=== PATIENT | male | born 1955 | race Caucasian/White ===

== ENCOUNTER 2017-09-15 14:32 | Inpatient (IN) | payer SELFPAY ==
[2017-09-15 15:03] LABS: #Lymphocytes 0.7 thou/uL (1.20-3.40); #Neutrophils 11.8 thou/uL (1.40-6.50); %Basophils 0.3 % (0.0-1.0); %Eosinophils 0.1 % (0.0-10.0); %Monocytes 7.6 % (0.0-10.0); Hematocrit 46.3 % (42.0-52.0); Mean Platelet Volume 8.3 fL (7.4-10.4); Red Blood Cell (RBC) Count 5.26 mill/uL (4.70-6.10); White Blood Cell (WBC) Count 13.6 thou/uL (4.8-10.8)
[2017-09-15 15:13] LABS: Oxyhemoglobin 87.5 % (94.0-97.0); Sodium 132 mmol/L (135-148)
[2017-09-15 15:15] LABS: Modified Allen's Test POSITIVE; Vent YES
[2017-09-15 15:16] LABS: Mode NIPPV; PIP 10 cmH2O
[2017-09-15 15:24] LABS: Lactic Acid - Sepsis 1.2 mmol/L (0.5-2.2)
[2017-09-15 15:28] LABS: ALT (SGPT) 19 U/L (8-55); AST (SGOT) 24 U/L (5-34); Alkaline Phosphatase 59 U/L (40-150); Anion Gap 12 mmol/L (10-20); BUN (Urea Nitrogen) 17 mg/dL (8.4-25.7); Bilirubin, Total 0.7 mg/dL (0.2-1.2); CK (CPK) 308 U/L (30-200); Calc. Creatinine Clearance 0 mL/min (70-130); Calcium 9.2 mg/dL (7.8-10.44); Carbon Dioxide 29 mmol/L (23-31); Chloride 94 mmol/L (98-107); Estimated GFR-MDRD Greater than 90; Globulin 3.9 g/dL (2.4-3.5); Lipase 11 U/L (8-78); Protein, Total 7.6 g/dL (5.8-8.1)
[2017-09-15 16:02] LABS: Bilirubin Negative (Negative); Blood, Urine Small (Negative); Glucose, Urine (Dipstick) Negative (Negative); Ketone, Urine Negative (Negative); Nitrite Negative (Negative); Protein, Urine (Dipstick) 300 mg/dL (Neg-Trace)
[2017-09-15 16:03] LABS: Oxyhemoglobin 85.5 % (94.0-97.0); Sodium 132 mmol/L (135-148)
[2017-09-15 16:04] LABS: Bacteria/HPF None Seen HPF (None Seen); Hyaline Casts/LPF 4-6 HYALINE CAST LPF (0-3 Hyaline); Squamous Epithelial 0-3 HPF (0-3); WBC/HPF 0-3 HPF (0-3)
[2017-09-15 16:04] LABS: Mechanical Tidal Volume 450 ml; Mode AVAPS; Modified Allen's Test POSITIVE; PIP 14 cmH2O; Vent YES
[2017-09-15] MEDS ORDERED: Fentanyl 20 MCG/ML 250 ML ONE (16:18)
[2017-09-15] MEDS ORDERED: Piperacillin/Tazobactam 3.375 GM in Sodium Chloride 0.9% 100 ML IVPB SCH ×2 (16:45→18:00)
[2017-09-15 17:12] LABS: Oxyhemoglobin 90.6 % (94.0-97.0); Sodium 131 mmol/L (135-148)
--- NOTE | 2017-09-15 17:12 | RAD ---
PORTABLE AP CHEST X-RAY 09/15/17 HISTORY: Dyspnea, sepsis. COMPARISON: None available. FINDINGS: The cardiac silhouette is magnified by projection and patient rotation. Pulmonary vasculature is with in normal limits. The left lung is clear. There is slight blunting of the right lateral costophrenic angle with parenchymal changes of the right lung base which may represent tiny right pleural effusion and atelectasis. However, followup PA and lateral chest x-ray is recommended. Thoracic aorta is ecta tic. There is prominence of the right paratracheal soft tissues, but this is probably related to lavon ent rotation and accentuation of the mediastinal structures. Osseous structures are intact. IMPRESSION: Findings likely related to tiny right pleural effusion and atelectasis. However, patient is rotated w hich may accentuate the markings at the right lung base. Followup PA and lateral chest x-ray is sugge kyled. POS: [facility]
[2017-09-15 17:13] LABS: Mechanical Tidal Volume 400 ml; Mode SIMV.PSV; Modified Allen's Test POSITIVE; Pressure Support 10 cmH2O; Vent YES
[2017-09-15] MEDS ORDERED: Acetaminophen 1,000 MG in Premix Bag 1 BAG IVPB SCH (17:15)
[2017-09-15] MEDS ORDERED: ISOVUE-370 76%-LOCM 1 ML ONE (17:18)
[2017-09-15] MEDS ORDERED: Norepinephrine 8 MG/0.9% NS 250 ML ONE (17:42)
[2017-09-15 17:49] LABS: Troponin I 0.064 ng/mL (< 0.028)
--- NOTE | 2017-09-15 18:04 | RAD ---
CHEST ONE VIEW 09/15/17 HISTORY: Central line placement. COMPARISON: Earlier exam on the same date. FINDINGS/IMPRESSION: Tip of a right subclavian central venous catheter projects over the right atrium. There is no evidenc e of pneumothorax. Other findings are stable. POS: [facility]
[2017-09-15] MEDS ORDERED: Dexamethasone 10 MG/ML VIAL ONE (18:31)
--- NOTE | 2017-09-15 18:38 | RAD ---
CHEST ONE VIEW 09/15/17 HISTORY: Intubation. COMPARISON: 09/15/17. FINDINGS: The cardiac silhouette is magnified by projection and partially obscured by patchy bibasilar infiltra sharon. Pulmonary vasculature is engorged. Mediastinum is midline. Tip of an endotracheal catheter overl ies the thoracic inlet. Nasogastric tube descends to the abdomen. IMPRESSION: 1. Endotracheal catheter and nasogastric tube are in good radiographic position. 2. Pulmonary vascular congestion and other findings are otherwise stable. POS: [facility]
[2017-09-15] MEDS ORDERED: Midazolam HCl 5 mg/ml Vial ONE (18:58)
[2017-09-15] MEDS ORDERED: Propofol 1,000 MG/100 ML VIAL IV ONE (20:00)
[2017-09-15] MEDS ORDERED: Norepinephrine 8 MG/250 ML BAG IVPB PRN (20:50)
[2017-09-15] MEDS ORDERED: Sodium Chloride 0.45% 1,000 ML IV SCH (21:00)
[2017-09-15] MEDS ORDERED: Sedation Protocol FS ONE (21:24)
[2017-09-15] MEDS ORDERED: Vancomycin HCl 1 GM in Sodium Chloride 0.9% 250 ML 250 ML IVPB SCH (21:24)
[2017-09-15] MEDS ORDERED: Sodium Chloride 0.9% 1,000 ML IV SCH (21:24)
--- NOTE | 2017-09-15 21:27 | CT ---
CT ARTERIOGRAM CHEST WITH IV CONTRAST AND 3D MIP IMAGING 09/15/17 HISTORY: Chest pain. Dyspnea. Fever. FINDINGS: There is good contrast opacification of the pulmonary arteries and partial opacification of the thora cic aorta with normal branching of the great vessels. Minimal arterial calcifications apparent. Endot keyana catheter and nasogastric tube are in place. There is extensive atelectasis at the right posterior lung base with mild left posterior basilar atel ectasis. No significant pleural effusions are apparent. There is resultant elevation of the right hem idiaphragm. IMPRESSION: 1. No CT evidence of pulmonary embolus. 2. Bibasilar atelectasis, right greater than left. Cause is not apparent. POS: [facility]
[2017-09-15] MEDS ORDERED: DISCONTINUE PREVIOUS NARCOTIC PAIN MEDICATIONS AND BENZODIAZEPINES FS SCH (21:31)
[2017-09-15] MEDS ORDERED: Morphine 4 MG/ML VIAL SLOW IVP PRN (21:32)
[2017-09-15 21:45] LABS: LegU Control Bar Appear? YES (CONTROL BAR); LegionellaU Control Bkground? CLEAR/WHITE (CLR/WHITE); Strp pneuU Control Background? CLEAR/WHITE (CLR/WHITE); Strp pneumo Control Bar Appear YES (CONTROL BAR)
[2017-09-15] MEDS ORDERED: Famotidine/PF 20 mg/2ml Vial SLOW IVP SCH (21:45)
[2017-09-15] MEDS ORDERED: ZOSYN IVPB PRN (21:56)
[2017-09-15] MEDS ORDERED: methylPREDNISolone Sod Succ/PF 125 MG/2 ML VIAL IVP SCH (22:00)
[2017-09-15] MEDS ORDERED: Potassium Phosphate 9 MMOL in Sodium Chloride 0.9% 100 ML IVPB PRN (22:14)
[2017-09-15] MEDS ORDERED: Potassium Chloride 20 MEQ TAB PO PRN (22:14)
[2017-09-15] MEDS ORDERED: Potassium Phosphate 15 MMOL in Sodium Chloride 0.9% 250 ML 250 ML IV PRN (22:14)
[2017-09-15] MEDS ORDERED: Magnesium Oxide 400 MG TAB PO PRN ×2 (22:14)
[2017-09-15] MEDS ORDERED: CCU ELECTROLYTE REPLACEMENT PROTOCOL FS PRN (22:14)
[2017-09-15] MEDS ORDERED: Potassium Chloride 40 MEQ in Premix Bag 1 BAG IVPB PRN (22:14)
[2017-09-15] MEDS ORDERED: Magnesium 2 GM/NS 0.9% 100 ML 2 GM in Premix Bag 1 BAG IVPB PRN (22:14)
[2017-09-15] MEDS ORDERED: Potassium Chloride 40 MEQ in Sodium Chloride 0.9% 250 ML 250 ML IVPB PRN (22:14)
[2017-09-15] MEDS ORDERED: Potassium Phosphate 12 MMOL in Sodium Chloride 0.9% 250 ML 250 ML IV PRN (22:14)
[2017-09-15] MEDS ORDERED: CCU Electrolyte Replacement 1 EACH FS SCH (22:15)
[2017-09-15 22:35] LABS: Lactic Acid - Sepsis 1.4 mmol/L (0.5-2.2)
[2017-09-15] MEDS: Oseltamivir 6 MG/ML ORAL SUSP PER TUBE SCH (23:02)
[2017-09-15] MEDS: Sodium Chloride 0.9% 1,000 ML IV SCH (23:02)
[2017-09-15 23:15] LABS: Troponin I 0.059 ng/mL (< 0.028)
[2017-09-15] MEDS: Norepinephrine 8 MG/0.9% NS 250 ML IVPB PRN (23:28)
[2017-09-15] MEDS: methylPREDNISolone Sod Succ/PF 125 MG/2 ML VIAL IVP SCH (23:30)
[2017-09-15] MEDS: Piperacillin/Tazobactam 4.5 GM in Sodium Chloride 0.9% 100 ML IVPB SCH (23:38)
--- NOTE | 2017-09-16 00:20 | OP ---
DATE OF SERVICE: 09/15/2017 PROCEDURE: Left femoral arterial line placement. PREOPERATIVE DIAGNOSIS: Hypotension with sepsis. POSTOPERATIVE DIAGNOSIS: Hypotension with sepsis. ANESTHESIA: None. DESCRIPTION OF PROCEDURE: This procedure was done on an emergent basis and there was no family here to provide consent for procedure. The left groin was scrubbed with chlorhexidine and draped sterilely. Using sterile technique, the le ft femoral artery was cannulated. An arterial line was placed via the modified Seldinger technique w ithout difficulty. The line flushed arterial blood.
--- NOTE | 2017-09-16 02:50 | CON ---
DATE OF CONSULTATION: 09/15/2017 Forty-five minutes of critical care time. REASON FOR CONSULTATION: Acute respiratory failure related to pneumonitis. HISTORY OF PRESENT ILLNESS: This is a 61-year-old male with little medical history other than hypert ension. He came in today with shortness of breath. He had been cleaning out a garage that apparentl y had either animals or fecal material. He has tested flu A positive, he rapidly deteriorated i n the emergency room, failing BiPAP and necessitated endotracheal intubation. PAST MEDICAL HISTORY: Hypertension. PAST SURGICAL HISTORY: None. ALLERGIES: None known. OUTPATIENT MEDICATIONS: None known. SOCIAL HISTORY: Employment history, none known. Former smoker. REVIEW OF SYSTEMS: Cannot be obtained secondary to him being intubated. PHYSICAL EXAMINATION: VITAL SIGNS: Temperature 102.8 on arrival. Initial blood pressure 126/112, now requiring Levophed f or hypertension. Pulse 131, respirations 24 on mechanical ventilation. GENERAL: He is a disheveled appearing male who is intubated and sedated. HEENT: Pupils are 2 mm and reactive. Sclerae are anicteric. Oropharnynx clear. NECK: No adenopathy or JVD. LUNGS: He has coarse crackles bilaterally with diminished breath sounds at the bases. CARDIAC: S1, S2, tachycardic without murmur. ABDOMEN: Obese, soft. No hepatosplenomegaly, no obvious masses. EXTREMITIES: No obvious skin lesions. No cyanosis or edema. LABORATORY AND DIAGNOSTIC DATA: White blood cell count 13.6, hemoglobin 14.6, hematocrit 46.3, plate let count 224 with 87% neutrophils. PH 7.26, pCO2 of 60, pO2 of 71 that was on SIMV rate 15, tidal v olume 400, PEEP 8, pressure support 10, FiO2 50%. Sodium 131, potassium 4.3, chloride 94, CO2 of 29, BUN 17, creatinine 0.8, glucose 139. Troponin 0.10. CPK 308. His chest x-ray shows diffuse bilate ral infiltrates. He has bilateral pleural effusions which are small. The endotracheal tube is locat ed about 4 cm above his enrike. He has a central line coursing to his right subclavian vein resting in the superior vena cava. ASSESSMENT: 1. Acute respiratory failure related to pneumonia. 2. Influenza type A. 3. Possible septic shock. 4. Hyponatremia. PLAN: 1. The patient is being placed in the CCU. He has been put on broad spectrum IV antibiotics include Levaquin, Zosyn, and vancomycin. 2. Vasopressor support as needed. 3. Fluid resuscitation. 4. IV steroids, thiamine, and vitamin C. 5. Consider prone position ventilation if his oxygenation continues to worse. 6. Await CT of the chest. 7. Possible arterial line placement.
--- NOTE | 2017-09-16 03:07 | HP-2 ---
CODE STATUS: FULL. PRIMARY CARE PHYSICIAN: [facility]. ATTENDING PHYSICIAN: Dr. Croft. PGY-1: Dr. Ni. CHIEF COMPLAINT: Shortness of breath. HISTORY OF PRESENT ILLNESS: This is a 61-year-old male that is intubated at the time of this interview. This patient's history is from the ED staff. According to the ED staff. The patient presented with shortness of breath, fever, wheezing and mild congestion for approximately 1 week. Apparently cleaning the house that was in bad shape and had multiple cats on scene of a relative. The patient had not taken care of himself recently as he was caring for a relative getting arrangements made. The patient denied vomiting or diarrhea. The patient also denied any lung disease or any PCP care. Further history taking will be done when the family is made available or when the patient's condition improves. In the ER, he was given DuoNebs, Levaquin, vancomycin and Zosyn. PAST MEDICAL HISTORY: Significant for hypertension. PAST SURGICAL HISTORY: Unknown. ALLERGIES: No known drug allergies. MEDICATIONS: Unknown. FAMILY HISTORY: Noncontributory. SOCIAL HISTORY: He is a former smoker, not sure of packs per day or on pack years. He denies any alcohol or drug use. REVIEW OF SYSTEMS: Unobtainable at this time other than listed in the HPI. PHYSICAL EXAMINATION: VITAL SIGNS: Blood pressure was 102/65, pulse was 116, respirations 15, temperature max is 102.4, pulse ox 90% on the ventilator. Currently, weighs 138 kilos. GENERAL: He was sedated and intubated. EYES: PERRLA. ENT: Nasal mucosa and oropharynx within normal limits. Endotracheal tube was in place. CARDIOVASCULAR: He had a tachy rhythm with distant heart sounds. RESPIRATORY: Had coarse lung sounds. SKIN: Warm and dry. ABDOMEN: Soft and nontender to palpation. Bowel sounds are present x4. No mass or distention. EXTREMITIES: No clubbing, cyanosis or edema. PSYCHIATRIC: He was sedated. LABORATORY AND IMAGING DATA: White blood cell count 13.6, platelet count 224, hemoglobin 14.6, hematocrit 46.3, MCV 87.9% and neutrophils 87.0. Sodium was 131, potassium 4.3, chloride 94, bicarbonate 29, BUN 17, creatinine 0.85, glucose 139, calcium 9.2, total protein 7.6, albumin 3.7, total bilirubin 0.7, AST 24, ALT 19 and alkaline phosphatase 5.59. Lactate was 1.4. Influenza H1 and A were positive. He had a CK level of 308, CK-MB of 2.6, troponin I of 0.064 and lipase of 11. His urinalysis showed a small amount of blood, protein 300, rbc's 4-6, white blood cells 0-3. His ABG showed a pH of 7.26, CO2 of 68.4 and pO2 of 71.2. His EKG showed sinus tachycardia with PVCs. Chest x-ray showed a tiny right pleural effusion with atelectasis. ASSESSMENT AND PLAN: A 61-year-old male presents with: 1. Septic shock. Continue his antibiotics and give him vasopressors. He will remain intubated on the ventilator. Consulted Dr. Currie with Pulmonology. We appreciate his help on this case. 2. Hypoxic hypercapnic respiratory failure. Consulted Dr. Currie with Pulmonology. We appreciate his recommendations. He will continue on the vent and DuoNebs. 3. Elevated troponins. We are going to trend those, give him an aspirin and get a fasting lipid panel, TSH, mag, phos, statin, Lovenox and then consider an echo and EKG in the morning. 4. Hyponatremia. Legionella rule out. Get urine sodium, osmolality. 5. Leukocytosis secondary to #1. We will trend a CBC. 6. Influenza H1 and A. We will give him Tamiflu through his tube. Disposition and length of hospital stay to the ICU and 2 midnights. Symptomatic medications will be provided. History and physical exam as well as management has been discussed with Dr. Croft. [facility]
[2017-09-16 04:37] LABS: #Lymphocytes 0.6 thou/uL (1.20-3.40); #Monocytes 0.7 thou/uL (0.11-0.59); #Neutrophils 14.7 thou/uL (1.40-6.50); %Basophils 0.1 % (0.0-1.0); %Lymphocytes 3.4 % (21.0-51.0); %Monocytes 4.6 % (0.0-10.0); Hematocrit 39.9 % (42.0-52.0); Mean Platelet Volume 8.5 fL (7.4-10.4); Red Blood Cell (RBC) Count 4.52 mill/uL (4.70-6.10)
[2017-09-16] MEDS: Propofol 1,000 MG/100 ML VIAL IV PRN ×3 (04:57→18:15)
[2017-09-16] MEDS: Piperacillin/Tazobactam 4.5 GM in Sodium Chloride 0.9% 100 ML IVPB SCH ×4 (05:00→23:52)
[2017-09-16 05:01] LABS: ALT (SGPT) 19 U/L (8-55); AST (SGOT) 21 U/L (5-34); Alkaline Phosphatase 47 U/L (40-150); Anion Gap 11 mmol/L (10-20); BUN (Urea Nitrogen) 23 mg/dL (8.4-25.7); Bilirubin, Total 0.6 mg/dL (0.2-1.2); Calc. Creatinine Clearance 121 mL/min (70-130); Calcium 8.1 mg/dL (7.8-10.44); Carbon Dioxide 25 mmol/L (23-31); Chloride 100 mmol/L (98-107); Cholesterol 131 mg/dl (< 200 Desired); Estimated GFR-MDRD 64; Globulin 3.2 g/dL (2.4-3.5); LDL Cholesterol, Calculated 84 mg/dL; Protein, Total 6.2 g/dL (5.8-8.1)
[2017-09-16] MEDS: methylPREDNISolone Sod Succ/PF 125 MG/2 ML VIAL IVP SCH ×4 (05:08→23:15)
[2017-09-16] MEDS: Sodium Chloride 0.9% 1,000 ML IV SCH ×3 (05:09→20:25)
[2017-09-16 06:55] LABS: Oxyhemoglobin 95.1 % (94.0-97.0); Sodium 136 mmol/L (135-148)
[2017-09-16 06:57] LABS: Mechanical Tidal Volume 400 ml; Pressure Support 10 cmH2O; Vent YES
[2017-09-16 06:58] LABS: Mode SIMV
[2017-09-16] MEDS: Lorazepam 2 MG/ML VIAL SLOW IVP PRN ×4 (07:28→23:15)
[2017-09-16] MEDS ORDERED: Metoclopramide HCl 10 MG/2 ML VIAL IVP PRN (07:37)
[2017-09-16] MEDS ORDERED: Dextrose 5% in Water 1,000 ML IV PRN (07:37)
[2017-09-16] MEDS ORDERED: Dextrose 50% Abboject 50 ML SYRINGE SLOW IVP PRN (07:37)
--- NOTE | 2017-09-16 07:59 | PRG ---
DATE OF SERVICE: 09/16/2017 SUBJECTIVE: Mr. Puente remains intubated on mechanical ventilation. According to his nighttime nurse, he will wake up and follow some commands. He is currently requiring Levophed at 10 mcg per minute. PHYSICAL EXAMINATION: VITAL SIGNS: On exam, his temperature is 98.5 with a T-max of 102 yesterday, heart rate 85, blood pr essure 116/68 via arterial line. Intake 2496, output 715. HEENT: Pupils react. Sclerae anicteric. Oropharynx is clear. NECK: No JVD. LUNGS: He has diminished breath sounds at the bases and generalized crackles throughout. CARDIOVASCULAR: S1, S2 regular. ABDOMEN: Soft, obese, nontender, nondistended. EXTREMITIES: No clubbing, cyanosis, or edema. He has arterial line in the left groin, he has a righ t subclavian line. X-RAY FINDINGS: His chest x-ray demonstrates endotracheal tube that rest about 5 cm above the enrike . He has a subclavian central line, which is resting in the superior vena cava. He has an infiltrat e in the right base. LABORATORY DATA: White blood cell count 16, hematocrit 39.9, platelet count 224, pH is 7.38, pCO2 40 , pO2 76 on SIMV rate 24, tidal volume 400, PEEP 14, pressure support 10, FIO2 60%. Sodium 132, pota ssium 3.9, chloride 100, CO2 25, BUN 23, creatinine 1.2, glucose 220, troponin 0.059. Cultures have no growth to date. ASSESSMENT: 1. Bilateral pneumonia. 2. Acute respiratory failure requiring mechanical ventilation. 3. Type A flu. 4. Mild hyponatremia. 5. Beginning renal insufficiency. 6. Slightly elevated troponin. 7. Hyperglycemia, which may be aggravated by the steroids. PLAN: 1. Continue the broad spectrum IV antibiotics, Tamiflu, and vasopressors. 2. Wean Levophed as tolerated. 3. Initiate enteral tube feeds. 4. Cut back on IV fluids.
--- NOTE | 2017-09-16 08:46 | RAD ---
PORTABLE CHEST: HISTORY: Dyspnea. CCU followup. COMPARISON: 09/15/17. FINDINGS: Right basilar opacification consistent with right basilar atelectasis and/or infiltrate with effusion . Mild left basilar atelectasis is also present. ET tube and central line unchanged. Upper lung fi elds remain clear. IMPRESSION: Bibasilar atelectasis and/or infiltrates, more prominent on the right. POS: [facility]
[2017-09-16] MEDS ORDERED: FLU VACC QS2017-18 36 mo. & older 0.5 ML SYRINGE IM ONE (09:00)
[2017-09-16] MEDS: Aspirin 325 MG TAB PER TUBE SCH (09:42)
[2017-09-16] MEDS: Enoxaparin Sodium 40 MG/0.4 ML SYRINGE SC SCH (09:42)
[2017-09-16] MEDS: Famotidine/PF 20 mg/2ml Vial SLOW IVP SCH ×2 (09:42→20:25)
[2017-09-16 10:20] LABS: Mechanical Tidal Volume 400 ml; Oxyhemoglobin 95.1 % (94.0-97.0); Pressure Support 10 cmH2O; Sodium 136 mmol/L (135-148); Vent YES
[2017-09-16 10:21] LABS: Mode SIMV
--- NOTE | 2017-09-16 10:36 | PDOC.FM ---
- Subjective Subjective: Patient awake and able to follow commands during evaluation. Aggitated and trying to talk over endotrachial tube. - Objective MAR Reviewed: Yes Vital Signs & Weight: Vital Signs (12 hours) Temp Pulse Resp Pulse Ox 09/16/17 10:05 75 09/16/17 08:00 98.4 F 74 24 H 99 09/16/17 06:41 61 09/16/17 04:00 98.5 F 24 H 09/16/17 02:23 65 24 H 96 09/16/17 02:00 24 H 09/16/17 00:00 98.2 F 24 H Weight Weight 135.2 kg Most Recent Monitor Data Heart Rate from ECG 66 NIBP 123/77 NIBP BP-Mean 90 Respiration from ECG 16 SpO2 100 I&O: 09/15/17 09/16/17 09/17/17 06:59 06:59 06:59 Intake Total 2496 Output Total 715 135 Balance 1781 -135 Result Diagrams: 09/16/17 03:39 09/16/17 03:39 <Kamron Shukla - Last Filed: 09/16/17 10:34> - Objective Vital Signs & Weight: Vital Signs (12 hours) Temp Pulse Resp Pulse Ox 09/16/17 10:05 75 09/16/17 08:00 98.4 F 74 24 H 99 09/16/17 06:41 61 09/16/17 04:00 98.5 F 24 H 09/16/17 02:23 65 24 H 96 09/16/17 02:00 24 H Weight Weight 135.2 kg Most Recent Monitor Data Heart Rate from ECG 65 NIBP 146/79 NIBP BP-Mean 105 Respiration from ECG 8 SpO2 95 I&O: 09/15/17 09/16/17 09/17/17 06:59 06:59 06:59 Intake Total 2496 Output Total 715 195 Balance 1781 -195 Result Diagrams: 09/16/17 03:39 09/16/17 03:39 <Chad Rojas - Last Filed: 09/16/17 12:23> Phys Exam - Physical Examination Constitutional: NAD EOMI Respiratory: no wheezing, clear to auscultation bilateral decreased breath sounds on right Cardiovascular: RRR, no significant murmur Gastrointestinal: soft, no distention Musculoskeletal: no edema, pulses present Neurological: moves all 4 limbs Deviation from normal: limited 2/2 intubation <Kamron Shukla - Last Filed: 09/16/17 10:34> Dx/Plan (1) Septic shock Code(s): A41.9 - SEPSIS, UNSPECIFIED ORGANISM; R65.21 - SEVERE SEPSIS WITH SEPTIC SHOCK Status: Acute Plan: CAP vs Influenza A vs zoonotic disease Currently on levophed 10, trying to wean down as BP tolerates continue with vanc, zosyn, levaquin, tamiflu Bld Cx sent (2) Acute respiratory failure with hypoxia and hypercarbia Code(s): J96.01 - ACUTE RESPIRATORY FAILURE WITH HYPOXIA; J96.02 - ACUTE RESPIRATORY FAILURE WITH HYPERCAPNIA Status: Acute Plan: Continue with endotrachial entubation until patient is able to support breaths SIMV 24, tidal volume 400, PEEP 14 at this time with FiO2 at 60. ABG this mornin.38/40/76 enteral tube feeds (3) Hyponatremia Code(s): E87.1 - HYPO-OSMOLALITY AND HYPONATREMIA Status: Acute (4) Leukocytosis Code(s): D72.829 - ELEVATED WHITE BLOOD CELL COUNT, UNSPECIFIED Status: Acute (5) Pneumonia and influenza Status: Acute Plan: pleural effusion R>L bld cx pending vanc, zosyn, levaquin <Kamron Shukla - Last Filed: 09/16/17 10:34> Attending Addendum - Attending Addendum I personally evaluated the patient and discussed the management with Dr. Shukla. I agree with and repeated the History, Examination, Assessment and Plan documented above with any addition or exceptions noted below. Still with septic shock, now responsive to levo. Continue current antimicrobials, send PCT. Consider alternative infectious causes in light of history, but suspect post viral in light of 1 week of reported cough/ congestion. Lung protective strategy. POCUS with hepatization bilaterally, no prominent effusion. Nebs PRN. Titrate vasopressors to goal map 65, continue steroids. DVT/gi ppx. Critical care time 45 minutes. <Chad Rojas - Last Filed: 09/16/17 12:23>
[2017-09-16] MEDS: Insulin Regular 300 UNITS/3 ML VIAL SC PRN (14:34)
[2017-09-16] MEDS: Fentanyl 20 MCG/ML 250 ML IVPB SCH (16:43)
[2017-09-16] MEDS: Oseltamivir 6 MG/ML ORAL SUSP PER TUBE SCH (21:03)
[2017-09-16] MEDS: Acetaminophen 325 MG TAB PO PRN (21:36)
[2017-09-16] MEDS: Norepinephrine 8 MG/0.9% NS 250 ML IVPB PRN (23:15)
[2017-09-17] MEDS: Insulin Regular 300 UNITS/3 ML VIAL SC PRN ×4 (01:06→23:01)
[2017-09-17] MEDS: Propofol 1,000 MG/100 ML VIAL IV PRN ×4 (02:18→20:26)
[2017-09-17 04:37] LABS: #Basophils 0.1 thou/uL (0.0-0.2); #Lymphocytes 0.4 thou/uL (1.20-3.40); #Monocytes 1.1 thou/uL (0.11-0.59); #Neutrophils 15.8 thou/uL (1.40-6.50); %Basophils 0.5 % (0.0-1.0); %Eosinophils 0.1 % (0.0-10.0); %Lymphocytes 2.1 % (21.0-51.0); %Monocytes 6.1 % (0.0-10.0); Hematocrit 37.2 % (42.0-52.0); Mean Platelet Volume 8.5 fL (7.4-10.4); White Blood Cell (WBC) Count 17.3 thou/uL (4.8-10.8)
[2017-09-17 04:58] LABS: ALT (SGPT) 19 U/L (8-55); AST (SGOT) 18 U/L (5-34); Alkaline Phosphatase 39 U/L (40-150); Anion Gap 10 mmol/L (10-20); BUN (Urea Nitrogen) 25 mg/dL (8.4-25.7); Bilirubin, Total 0.3 mg/dL (0.2-1.2); Calc. Creatinine Clearance 142 mL/min (70-130); Calcium 8.3 mg/dL (7.8-10.44); Carbon Dioxide 25 mmol/L (23-31); Chloride 104 mmol/L (98-107); Estimated GFR-MDRD 73; Protein, Total 5.7 g/dL (5.8-8.1)
[2017-09-17] MEDS: Piperacillin/Tazobactam 4.5 GM in Sodium Chloride 0.9% 100 ML IVPB SCH ×4 (05:03→23:06)
[2017-09-17] MEDS: methylPREDNISolone Sod Succ/PF 125 MG/2 ML VIAL IVP SCH ×4 (05:03→22:58)
[2017-09-17 07:05] LABS: Oxyhemoglobin 95.4 % (94.0-97.0); Sodium 136 mmol/L (135-148)
[2017-09-17 07:09] LABS: Mechanical Tidal Volume 400 ml; Mode SIMV.PSV; Modified Allen's Test NOT DONE; Pressure Support 10 cmH2O; Vent YES
--- NOTE | 2017-09-17 08:22 | PRG ---
DATE OF SERVICE: 09/17/2017 The patient remains intubated on mechanical ventilation. He will wake up and nod and shake his head. PHYSICAL EXAMINATION: VITAL SIGNS: On exam, his temperature is 99.0 with a T-max 101.5, pulse is in the 80s, blood pressur e 125/70. He is on Levophed at 5 mcg per minute. Total intake for the last 24 hours has been 3430, output 1365. Weight 298 pounds. HEENT: Unremarkable. NECK: No JVD. LUNGS: He has diminished breath sounds in the bases and crackles throughout both lungs. CARDIAC: S1, S2 regular. ABDOMEN: Soft, nontender, nondistended. He is tolerating his tube feeds. EXTREMITIES: Without clubbing, cyanosis, or edema. LABORATORY DATA: White blood cell count 17.3, hemoglobin 11.9, hematocrit 37.2, platelet count 233, pH 7.35, pCO2 45, pO2 of 82 on SIMV rate 24, tidal volume 400, PEEP 14, pressure support 10, FiO2 60% . Sodium 135, potassium 4.2, chloride 104, CO2 25, BUN 25, creatinine 1.0, glucose 180. Chest x-ray shows no change. ASSESSMENT: 1. Bilateral pneumonia. 2. Acute hypoxic respiratory failure requiring mechanical ventilation. 3. Influenza type A. 4. Hyponatremia, which is corrected. 5. Mild renal insufficiency. 6. Slightly elevated troponin. 7. Hyperglycemia, likely aggravated by steroids. PLAN: 1. Continue tube feeds. 2. Continue antibiotics and Tamiflu. 3. Wean vasopressor as tolerated. 4. Cut back on FiO2, but he is not weanable from the ventilator otherwise at this time. 5. Cut back on IV fluids. Prognosis is still very guarded.
--- NOTE | 2017-09-17 08:29 | PDOC.FM ---
- Subjective Subjective: No significant changes overnight. Patient able to follow commands when on sedation vacation. Denies any pain. Temp 101.5 overnight resolved with tylenol. Rull ROS unable to be completed 2/2 sedation/intubation. - Objective MAR Reviewed: Yes Vital Signs & Weight: Vital Signs (12 hours) Temp Pulse Resp BP Pulse Ox 09/17/17 08:00 24 H 09/17/17 07:20 99.0 F 73 24 H 93 L 09/17/17 07:00 99.0 F 09/17/17 06:46 71 106/60 09/17/17 06:44 72 24 H 92 L 09/17/17 04:00 99.4 F 24 H 09/17/17 02:50 73 114/63 95 09/17/17 02:00 24 H 09/17/17 00:00 100 F H 24 H 09/16/17 23:27 80 96 09/16/17 22:00 24 H Weight Admit Weight 135.171 kg Weight 135.5 kg Most Recent Monitor Data Heart Rate from ECG 75 NIBP 143/75 NIBP BP-Mean 94 Respiration from ECG 25 SpO2 98 I&O: 09/16/17 09/17/17 09/18/17 06:59 06:59 06:59 Intake Total 2496 3430.3 30 Output Total 715 1365 200 Balance 1781 2065.3 -170 Result Diagrams: 09/17/17 04:17 09/17/17 04:17 <Kamron Shukla - Last Filed: 09/17/17 10:47> - Objective Vital Signs & Weight: Vital Signs (12 hours) Temp Pulse Resp BP Pulse Ox 09/17/17 18:47 70 140/77 09/17/17 18:00 24 H 09/17/17 16:00 98.9 F 24 H 09/17/17 15:37 67 125/68 09/17/17 15:36 67 24 H 93 L 09/17/17 14:00 24 H 09/17/17 12:00 98.9 F 24 H 09/17/17 11:22 67 140/82 09/17/17 11:21 67 24 H 95 09/17/17 10:00 24 H 09/17/17 08:00 24 H Weight Admit Weight 135.171 kg Weight 135.5 kg Most Recent Monitor Data Heart Rate from ECG 77 NIBP 132/74 NIBP BP-Mean 88 Respiration from ECG 24 SpO2 96 I&O: 09/16/17 09/17/17 09/18/17 06:59 06:59 06:59 Intake Total 2496 3430.3 2161 Output Total 715 1365 1160 Balance 1781 2065.3 1001 Result Diagrams: 09/17/17 04:17 09/17/17 04:17 <Chad Rojas - Last Filed: 09/17/17 19:52> Phys Exam - Physical Examination Constitutional: NAD intubation tube in place Neck: no JVD Respiratory: no wheezing, clear to auscultation bilateral Cardiovascular: RRR, no significant murmur Gastrointestinal: soft, positive bowel sounds Musculoskeletal: no edema, pulses present follows commands when sedation is stopped <Kamron Shukla - Last Filed: 09/17/17 10:47> Dx/Plan (1) Septic shock Code(s): A41.9 - SEPSIS, UNSPECIFIED ORGANISM; R65.21 - SEVERE SEPSIS WITH SEPTIC SHOCK Status: Acute Plan: CAP vs Influenza A vs zoonotic disease Currently on levophed 5, trying to wean down as BP tolerates continue with vanc, zosyn, levaquin, tamiflu Bld Cx negative after 24hrs (2) Acute respiratory failure with hypoxia and hypercarbia Code(s): J96.01 - ACUTE RESPIRATORY FAILURE WITH HYPOXIA; J96.02 - ACUTE RESPIRATORY FAILURE WITH HYPERCAPNIA Status: Acute Plan: Continue with endotrachial intubation until patient is able to support breaths SIMV 24, tidal volume 400, PEEP 14 at this time with FiO2 at 60. Will try to wean FiO2 down to 55 today and evaluate tolerance ABG this mornin.38/40/76 enteral tube feeds at 65ml/hr (3) Hyponatremia Code(s): E87.1 - HYPO-OSMOLALITY AND HYPONATREMIA Status: Acute Plan: improved, now 135 (4) Leukocytosis Code(s): D72.829 - ELEVATED WHITE BLOOD CELL COUNT, UNSPECIFIED Status: Acute (5) Pneumonia and influenza Status: Acute Plan: chest xray unchanged from yesterday bld cx pending, no growth after 24hrs vanc, zosyn, levaquin - Plan Plan: continue with SIMV at this time as well as enteral feeds; will await full culture growth but likely non-bacterial <Kamron Shukla - Last Filed: 09/17/17 10:47> Attending Addendum - Attending Addendum I personally evaluated the patient and discussed the management with Dr. Shukla. I agree with and repeated the History, Examination, Assessment and Plan documented above with any addition or exceptions noted below. Septic shock with ARDS secondary to influenza and possible post-influenza bacterial pneumonia, improving. Daily sedation vacations Lung protective ventilation Wean NE as tolerated Hold IVF, tolerating enteral nutrition Trend hgb PCT reassuring for likely viral etiology or early response to antimicrobials. Repeat day 5-7 prior to d/c of antibiotics pending course. DVT/GI ppx 45 minutes of critical care time. <Chad Rojas - Last Filed: 09/17/17 19:52>
[2017-09-17] MEDS: Aspirin 325 MG TAB PER TUBE SCH (08:35)
[2017-09-17] MEDS: Sodium Chloride 0.9% 1,000 ML IV SCH ×2 (08:35→22:56)
[2017-09-17] MEDS: Famotidine/PF 20 mg/2ml Vial SLOW IVP SCH ×2 (08:35→21:28)
[2017-09-17] MEDS: Enoxaparin Sodium 40 MG/0.4 ML SYRINGE SC SCH (08:35)
--- NOTE | 2017-09-17 08:51 | RAD ---
PORTABLE CHEST: History: Dyspnea. CCU follow up. Comparison: 09-16-17 FINDINGS: Opacification of the right lung base remains obscuring the right hemidiaphragm. There is evidence of left basilar atelectasis and/or infiltrate. There is evidence of bilateral effusions. ET tube, NG tube, and central line is unchanged. IMPRESSION: No significant change in the chest from yesterday. POS: [facility]
[2017-09-17 10:28] LABS: Vancomycin, Trough 16.7 ug/mL
[2017-09-17] MEDS: Fentanyl 20 MCG/ML 250 ML IVPB SCH (17:20)
[2017-09-17] MEDS: Oseltamivir 6 MG/ML ORAL SUSP PER TUBE SCH (21:43)
[2017-09-18] MEDS: Propofol 1,000 MG/100 ML VIAL IV PRN ×6 (01:04→21:56)
[2017-09-18] MEDS: methylPREDNISolone Sod Succ/PF 125 MG/2 ML VIAL IVP SCH (05:11)
[2017-09-18] MEDS: Piperacillin/Tazobactam 4.5 GM in Sodium Chloride 0.9% 100 ML IVPB SCH ×4 (05:11→23:23)
[2017-09-18 05:35] LABS: ALT (SGPT) 16 U/L (8-55); AST (SGOT) 16 U/L (5-34); Alkaline Phosphatase 35 U/L (40-150); Anion Gap 10 mmol/L (10-20); BUN (Urea Nitrogen) 25 mg/dL (8.4-25.7); Bilirubin, Total 0.3 mg/dL (0.2-1.2); Calc. Creatinine Clearance 172 mL/min (70-130); Calcium 8.4 mg/dL (7.8-10.44); Carbon Dioxide 27 mmol/L (23-31); Chloride 107 mmol/L (98-107); Estimated GFR-MDRD 90; Protein, Total 5.5 g/dL (5.8-8.1)
[2017-09-18 06:49] LABS: Band 24 % (5-11); Hematocrit 35.4 % (42.0-52.0); Mean Platelet Volume 8.2 fL (7.4-10.4); Neutrophil 67 % (42-75); Red Blood Cell (RBC) Count 3.97 mill/uL (4.70-6.10); White Blood Cell (WBC) Count 13.7 thou/uL (4.8-10.8)
[2017-09-18 07:11] LABS: Oxyhemoglobin 95.7 % (94.0-97.0); Sodium 141 mmol/L (135-148)
[2017-09-18 07:12] LABS: Mechanical Tidal Volume 400 ml; Mode SIMV; Pressure Support 10 cmH2O; Vent YES
--- NOTE | 2017-09-18 08:13 | PDOC.FM ---
- Subjective Subjective: No significant changes overnight, patient was weaned down on levophed down to 1 but unable to tolerate cessation. Patient tolerated FiO2 at 50% well. During sedation vacation he wakes up and follows commands. - Objective MAR Reviewed: Yes Vital Signs & Weight: Vital Signs (12 hours) Temp Pulse Resp BP 09/18/17 06:41 67 98/57 L 09/18/17 06:00 24 H 09/18/17 04:00 97.8 F 24 H 09/18/17 02:04 65 116/69 09/18/17 00:00 98.5 F 24 H 09/17/17 22:00 24 H 09/17/17 21:43 77 133/75 Weight Admit Weight 135.171 kg Weight 136.6 kg Most Recent Monitor Data Heart Rate from ECG 81 NIBP 138/78 NIBP BP-Mean 98 Respiration from ECG 24 SpO2 94 I&O: 09/17/17 09/18/17 09/19/17 06:59 06:59 06:59 Intake Total 3430.3 4404 Output Total 1365 1920 100 Balance 2065.3 2484 -100 Result Diagrams: 09/18/17 04:41 09/18/17 04:41 <Kamron Shukla - Last Filed: 09/18/17 08:11> - Objective Vital Signs & Weight: Vital Signs (12 hours) Temp Pulse Resp BP Pulse Ox 09/18/17 10:00 20 09/18/17 08:00 97.6 F 71 20 93 L 09/18/17 06:41 67 98/57 L 09/18/17 06:00 24 H 09/18/17 04:00 97.8 F 24 H 09/18/17 02:04 65 116/69 09/18/17 00:00 98.5 F 24 H Weight Admit Weight 135.171 kg Weight 136.6 kg Most Recent Monitor Data Heart Rate from ECG 69 NIBP 107/63 NIBP BP-Mean 70 Respiration from ECG 20 SpO2 93 I&O: 09/17/17 09/18/17 09/19/17 06:59 06:59 06:59 Intake Total 3430.3 4404 150 Output Total 1365 1920 385 Balance 2065.3 2484 -235 Result Diagrams: 09/18/17 04:41 09/18/17 04:41 <Chad Rojas - Last Filed: 09/18/17 10:39> Phys Exam - Physical Examination Constitutional: NAD intubation with minimal secretions Respiratory: no wheezing, clear to auscultation bilateral Cardiovascular: RRR, no significant murmur Gastrointestinal: soft, positive bowel sounds Musculoskeletal: no edema, pulses present follows commands during sedation vacation Deviation from normal: sedated Skin: no rash Deviation from normal: no open wounds or lesions/pressure sores <Kamron Shukla - Last Filed: 09/18/17 08:11> Dx/Plan (1) Septic shock Code(s): A41.9 - SEPSIS, UNSPECIFIED ORGANISM; R65.21 - SEVERE SEPSIS WITH SEPTIC SHOCK Status: Acute Plan: CAP vs Influenza A vs zoonotic disease Currently on levophed 1, trying to wean down as BP tolerates continue with vanc, zosyn, levaquin, tamiflu Bld Cx negative after 48hrs (2) Acute respiratory failure with hypoxia and hypercarbia Code(s): J96.01 - ACUTE RESPIRATORY FAILURE WITH HYPOXIA; J96.02 - ACUTE RESPIRATORY FAILURE WITH HYPERCAPNIA Status: Acute Plan: Continue with endotrachial intubation until patient is able to support breaths SIMV 24, tidal volume 400, PEEP 14 at this time with FiO2 at 50. ABG this mornin.36/46/87 enteral tube feeds (3) Hyponatremia Code(s): E87.1 - HYPO-OSMOLALITY AND HYPONATREMIA Status: Acute Plan: improved, now 139 (4) Leukocytosis Code(s): D72.829 - ELEVATED WHITE BLOOD CELL COUNT, UNSPECIFIED Status: Acute (5) Pneumonia and influenza Status: Acute Plan: chest xray unchanged from yesterday bld cx pending, no growth after 48hrs vanc, zosyn, levaquin, tamiflu - Plan Plan: continue weaning down on levophed and vent as patient tolerates <Kamron Shukla - Last Filed: 09/18/17 08:11> Attending Addendum - Attending Addendum I personally evaluated the patient and discussed the management with Dr. Shukla. I agree with and repeated the History, Examination, Assessment and Plan documented above with any addition or exceptions noted below. Unable to complete ROS 2/2 intubation. Daily sedation vacations, switch from propofol if able. Lung protective ventilation, improving Tolerating feeds, hold IVF at receiving ~2L daily with others Continue antibiotics and antiviral DVT/GI ppx Critical care time 45 minutes <Chad Rojas - Last Filed: 09/18/17 10:39>
[2017-09-18] MEDS: Enoxaparin Sodium 40 MG/0.4 ML SYRINGE SC SCH (08:19)
[2017-09-18] MEDS: Famotidine/PF 20 mg/2ml Vial SLOW IVP SCH ×2 (08:19→20:45)
[2017-09-18] MEDS: Aspirin 325 MG TAB PER TUBE SCH (08:19)
[2017-09-18] MEDS ORDERED: Furosemide 20 MG/2 ML VIAL IVP SCH (08:30)
--- NOTE | 2017-09-18 08:41 | PRG ---
DATE OF SERVICE: 09/18/2017 Thirty minutes critical care time. The patient remains intubated on mechanical ventilation. He is sedated on propofol and fentanyl. He will wake up and follow commands. PHYSICAL EXAMINATION: VITAL SIGNS: His temperature is 97.8 with no fever overnight, pulse 81, blood pressure 130/78. He i s off the Levophed drip. Total intake for 24 hours 4404, output 1920. Weight 301 pounds. HEENT: Unremarkable. NECK: No JVD. LUNGS: Diminished breath sounds at the bases. CARDIOVASCULAR: S1, S2 regular, without murmur. ABDOMEN: Soft, obese, nontender, nondistended. EXTREMITIES: No clubbing, cyanosis. He has trace edema. His micro cultures show no growth to date. LABORATORY DATA: Sodium 139, potassium 4.5, chloride 107, CO2 of 27, BUN 25, creatinine 0.8, glucose 161. Albumin is 2.5, pH 7.36, pCO2 46, pO2 of 87 on SIMV rate 24, tidal volume 400, PEEP 14, pressu re support 10, FiO2 50%. White blood cell count 13.7, hematocrit 35.4, platelet count 261. ASSESSMENT: 1. Acute respiratory failure requiring mechanical ventilation. 2. Bilateral pneumonia. 3. Influenza type A. 4. Corrected hyponatremia. 5. Mild renal insufficiency which is resolved. 6. Hyperglycemia that is aggravated by steroids. PLAN: 1. I have weaned his respiratory rate and decreased his PEEP and adjusted his tidal volume. 2. Begin to gently diurese. 3. Discontinue arterial line. 4. Continue IV antibiotics. 5. Start sliding scale insulin.
--- NOTE | 2017-09-18 08:48 | RAD ---
PORTABLE CHEST: Comparison: 09-17-17 History: Respiratory distress. FINDINGS: Heart size is borderline. Endotracheal and NG tube and right sided subclavian line are all unchanged in position. Bibasilar lung changes are similar to the prior exam. IMPRESSION: Stable exam. POS: [facility]
[2017-09-18] MEDS: Insulin Regular 300 UNITS/3 ML VIAL SC PRN ×3 (10:10→22:11)
[2017-09-18] MEDS: Sodium Chloride 0.9% 1,000 ML IV SCH (20:35)
[2017-09-18] MEDS: Oseltamivir 6 MG/ML ORAL SUSP PER TUBE SCH (21:31)
[2017-09-19] MEDS: Propofol 1,000 MG/100 ML VIAL IV PRN ×7 (01:36→23:21)
[2017-09-19] MEDS: Lorazepam 2 MG/ML VIAL SLOW IVP PRN ×3 (01:47→16:18)
[2017-09-19 04:32] LABS: ALT (SGPT) 18 U/L (8-55); AST (SGOT) 16 U/L (5-34); Alkaline Phosphatase 34 U/L (40-150); Anion Gap 8 mmol/L (10-20); BUN (Urea Nitrogen) 33 mg/dL (8.4-25.7); Bilirubin, Total 0.3 mg/dL (0.2-1.2); Calc. Creatinine Clearance 183 mL/min (70-130); Calcium 8.4 mg/dL (7.8-10.44); Carbon Dioxide 28 mmol/L (23-31); Chloride 108 mmol/L (98-107); Estimated GFR-MDRD Greater than 90; Globulin 3.1 g/dL (2.4-3.5); Protein, Total 5.6 g/dL (5.8-8.1)
[2017-09-19 04:39] LABS: Anisocytosis SLIGHT = 6-15 cells (100X) (0-5/hpf); Band 9 % (5-11); Hematocrit 35.3 % (42.0-52.0); Mean Platelet Volume 8.3 fL (7.4-10.4); Metamyelocyte 2 % (0-0); Neutrophil 74 % (42-75); Red Blood Cell (RBC) Count 3.99 mill/uL (4.70-6.10); White Blood Cell (WBC) Count 13.2 thou/uL (4.8-10.8)
[2017-09-19] MEDS: Piperacillin/Tazobactam 4.5 GM in Sodium Chloride 0.9% 100 ML IVPB SCH ×4 (05:00→23:16)
[2017-09-19 06:58] LABS: Sodium 143 mmol/L (135-148)
[2017-09-19 07:05] LABS: Mechanical Tidal Volume 500 ml; Mode SIMV; Modified Allen's Test POSITIVE; Pressure Support 10 cmH2O; Vent YES
[2017-09-19] MEDS: Fentanyl 20 MCG/ML 250 ML IVPB SCH (07:37)
[2017-09-19] MEDS: Famotidine/PF 20 mg/2ml Vial SLOW IVP SCH (08:02)
[2017-09-19] MEDS: Enoxaparin Sodium 40 MG/0.4 ML SYRINGE SC SCH (08:02)
[2017-09-19] MEDS: Aspirin 325 MG TAB PER TUBE SCH (08:02)
--- NOTE | 2017-09-19 08:37 | PRG ---
DATE OF SERVICE: 09/19/2017 The patient remains on mechanical ventilation. He is sedated on propofol. PHYSICAL EXAMINATION: VITAL SIGNS: Temperature is 97.0, pulse 65, blood pressure 140/78. 24 hour intake is 3517, output 2 145. HEENT: Unremarkable. NECK: Without adenopathy, JVD, or bruits. LUNGS: Diminished breath sounds throughout. CARDIAC: S1 and S2 regular. ABDOMEN: Soft. EXTREMITIES: No edema. LABORATORY DATA: Sodium 140, potassium 4.3, chloride 108, CO2 20, BUN 33, creatinine 0.8, glucose 15 5, albumin 2.5. PH 7.43, pCO2 of 40, pO2 65. White blood cell count 13.2, hematocrit 35.3, platelet count 288. ASSESSMENT: 1. Acute respiratory failure secondary to pneumonia. 2. Influenza type A. 3. Mild prerenal azotemia. PLAN: 1. Switch to bilevel ventilation. 2. Scheduled Reglan given the increase tube feed residuals. 3. Continue broad spectrum IV antibiotics and steroids. 4. It looks like this will take quite a while before we start seeing improvement.
--- NOTE | 2017-09-19 09:08 | RAD ---
EXAM: ONE VIEW CHEST: COMPARISON: 09/18/17. HISTORY: Respiratory distress. Ventilated patient. FINDINGS: Stable endotracheal, nasogastric tubes, as well as a right-sided central venous catheter. Persistent opacification in the left and right lung bases which obscure both hemidiaphragms. Stable configurat ion of the cardiac silhouette. No pneumothorax. IMPRESSION: No significant interval change. POS: [facility]
[2017-09-19] MEDS: Metoclopramide HCl 10 MG/2 ML VIAL IVP SCH ×3 (09:55→20:08)
--- NOTE | 2017-09-19 10:50 | PDOC.FM ---
- Subjective Subjective: Patient overnight had an episode of agitation which resolved with ativan. Patient was passing gas this morning during shift change. Currently BP maintained off levophed. - Objective MAR Reviewed: Yes Vital Signs & Weight: Vital Signs (12 hours) Temp Pulse Resp BP Pulse Ox 09/19/17 08:29 64 154/73 H 09/19/17 08:00 97.3 F L 64 20 91 L 09/19/17 06:41 64 147/74 H 09/19/17 06:00 20 09/19/17 04:00 97.0 F L 20 09/19/17 02:24 67 139/75 09/19/17 02:23 67 20 93 L 09/19/17 02:00 20 09/19/17 00:00 97.1 F L 20 Weight Admit Weight 135.171 kg Weight 138.2 kg Most Recent Monitor Data Heart Rate from ECG 59 NIBP 175/90 NIBP BP-Mean 108 Respiration from ECG 20 SpO2 91 I&O: 09/18/17 09/19/17 09/20/17 06:59 06:59 06:59 Intake Total 4404 3517 150 Output Total 1920 2145 360 Balance 2484 1372 -210 Result Diagrams: 09/19/17 03:43 09/19/17 03:43 <Kamron Shukla - Last Filed: 09/19/17 10:48> - Objective Vital Signs & Weight: Vital Signs (12 hours) Temp Pulse Resp BP Pulse Ox 09/19/17 10:50 65 175/90 H 09/19/17 08:29 64 154/73 H 09/19/17 08:00 97.3 F L 64 20 91 L 09/19/17 06:41 64 147/74 H 09/19/17 06:00 20 09/19/17 04:00 97.0 F L 20 09/19/17 02:24 67 139/75 09/19/17 02:23 67 20 93 L 09/19/17 02:00 20 09/19/17 00:00 97.1 F L 20 Weight Admit Weight 135.171 kg Weight 138.2 kg Most Recent Monitor Data Heart Rate from ECG 59 NIBP 175/90 NIBP BP-Mean 108 Respiration from ECG 20 SpO2 91 I&O: 09/18/17 09/19/17 09/20/17 06:59 06:59 06:59 Intake Total 4404 3517 150 Output Total 1210 2145 360 Balance 2484 1372 -210 Result Diagrams: 09/19/17 03:43 09/19/17 03:43 <Chad Rojas - Last Filed: 09/19/17 11:08> Phys Exam - Physical Examination Constitutional: NAD HEENT: moist MMs Neck: no JVD Respiratory: no wheezing, clear to auscultation bilateral Cardiovascular: RRR, no significant murmur Gastrointestinal: soft midline hernia, stable from previous days Musculoskeletal: pulses present mild edema in hands and feet retracts from pain Deviation from normal: sedated Skin: no rash, normal turgor Deviation from normal: no lesions or breaks in skin <Kamron Shukla - Last Filed: 09/19/17 10:48> Dx/Plan (1) Septic shock Code(s): A41.9 - SEPSIS, UNSPECIFIED ORGANISM; R65.21 - SEVERE SEPSIS WITH SEPTIC SHOCK Status: Acute Plan: likely influenza pneumonia BP maintaining without levophed continue with vanc, zosyn, levaquin, tamiflu Bld Cx negative after 48hrs (2) Acute respiratory failure with hypoxia and hypercarbia Code(s): J96.01 - ACUTE RESPIRATORY FAILURE WITH HYPOXIA; J96.02 - ACUTE RESPIRATORY FAILURE WITH HYPERCAPNIA Status: Acute Plan: Continue with endotrachial intubation until patient is able to support breaths possibly consider trach next week if patient appears to continue to require intubation patient changed to bilevel today, , RR20, FiO2: 40% ABG this mornin.43/40/65 enteral tube feeds (3) Hyponatremia Code(s): E87.1 - HYPO-OSMOLALITY AND HYPONATREMIA Status: Resolved Plan: improved, now 139 (4) Leukocytosis Code(s): D72.829 - ELEVATED WHITE BLOOD CELL COUNT, UNSPECIFIED Status: Acute (5) Pneumonia and influenza Status: Acute Plan: chest xray unchanged from yesterday bld cx pending, no growth after 48hrs vanc, zosyn, levaquin, tamiflu <Kamron Shukla - Last Filed: 09/19/17 10:48> Attending Addendum - Attending Addendum I personally evaluated the patient and discussed the management with Dr. Shukla. I agree with and repeated the History, Examination, Assessment and Plan documented above with any addition or exceptions noted below. On bilevel, TV's 700's Elevated BUN, stable hgb, on steroids Begin weaning steroids Continue antimicrobials for 7-10 days total DVT/gi ppx <Chad Rojas - Last Filed: 09/19/17 11:08>
[2017-09-19] MEDS: Insulin Regular 300 UNITS/3 ML VIAL SC PRN ×3 (11:21→21:48)
[2017-09-19] MEDS: Famotidine 20 MG TAB PER TUBE SCH (20:08)
[2017-09-19] MEDS: Oseltamivir 6 MG/ML ORAL SUSP PER TUBE SCH (20:36)
[2017-09-20] MEDS: Metoclopramide HCl 10 MG/2 ML VIAL IVP SCH ×4 (02:08→22:16)
[2017-09-20] MEDS: Propofol 1,000 MG/100 ML VIAL IV PRN ×5 (02:08→18:50)
[2017-09-20] MEDS: Insulin Regular 300 UNITS/3 ML VIAL SC PRN ×4 (04:07→22:45)
[2017-09-20 04:33] LABS: ALT (SGPT) 19 U/L (8-55); AST (SGOT) 19 U/L (5-34); Alkaline Phosphatase 35 U/L (40-150); Anion Gap 7 mmol/L (10-20); BUN (Urea Nitrogen) 31 mg/dL (8.4-25.7); Bilirubin, Total 0.3 mg/dL (0.2-1.2); Calc. Creatinine Clearance 197 mL/min (70-130); Calcium 8.6 mg/dL (7.8-10.44); Carbon Dioxide 31 mmol/L (23-31); Chloride 107 mmol/L (98-107); Estimated GFR-MDRD Greater than 90; Globulin 3.2 g/dL (2.4-3.5); Protein, Total 5.7 g/dL (5.8-8.1)
[2017-09-20 04:39] LABS: Band 8 % (5-11); Hematocrit 36.7 % (42.0-52.0); Mean Platelet Volume 8.3 fL (7.4-10.4); Metamyelocyte 2 % (0-0); Neutrophil 76 % (42-75); Nucleated RBC 1 % (0); Red Blood Cell (RBC) Count 4.17 mill/uL (4.70-6.10)
[2017-09-20] MEDS: Piperacillin/Tazobactam 4.5 GM in Sodium Chloride 0.9% 100 ML IVPB SCH ×3 (05:12→17:27)
[2017-09-20 06:28] LABS: Mechanical Tidal Volume 536 ml; Modified Allen's Test POSITIVE; Oxyhemoglobin 94.3 % (94.0-97.0); PIP 26 cmH2O; Pressure Support 10 cmH2O; Sodium 142 mmol/L (135-148); Vent YES
[2017-09-20 06:29] LABS: Mode BL 20 26/14
[2017-09-20] MEDS: Famotidine 20 MG TAB PER TUBE SCH ×2 (08:05→22:15)
[2017-09-20] MEDS: Enoxaparin Sodium 40 MG/0.4 ML SYRINGE SC SCH (08:05)
[2017-09-20] MEDS: Aspirin 325 MG TAB PER TUBE SCH (08:05)
[2017-09-20] MEDS ORDERED: Furosemide 40 MG/4 ML VIAL IVP SCH (08:15)
[2017-09-20] MEDS: Oseltamivir 6 MG/ML ORAL SUSP PER TUBE SCH ×2 (08:18→22:15)
--- NOTE | 2017-09-20 08:38 | PRG ---
DATE OF SERVICE: 09/20/2017 Thirty-five minutes critical care time. Mr. Puente remains intubated on mechanical ventilation. He will wake up and follow commands when the s edation is stopped. PHYSICAL EXAMINATION: VITAL SIGNS: His temperature is 97.0, pulse 57, blood pressure 137/81, 24-hour intake is 4112, outpu t 2235. HEENT: Unremarkable. NECK: No JVD. LUNGS: A few crackles bilaterally. CARDIOVASCULAR: S1, S2 regular. ABDOMEN: Soft. EXTREMITIES: Trace edema. LABORATORY DATA: White blood cell count 11, hematocrit 36.7, platelet count 334, pH 7.43, pCO2 of 42 , pO2 70 that is on bilevel, rate 20, high pressure 26, low pressure 14, FiO2 40%. Sodium 140, potas sium 4.7, chloride 107, CO2 31, BUN 31, creatinine 0.7, glucose 178. Chest x-ray continues to show pulmonary edema and bilateral infiltrates. ASSESSMENT: 1. Acute respiratory failure. 2. Bilateral pneumonia. 3. Influenza type A. 4. Mild fluid overload. PLAN: 1. I will go ahead and try to turn her pressures down some today. 2. Stop the vancomycin since Staph has not grown from the cultures. 3. Continue the Zosyn and Levaquin. 4. Tamiflu should stop in the next day or so. 5. One dose of diuretics.
[2017-09-20] MEDS: Lorazepam 2 MG/ML VIAL SLOW IVP PRN ×2 (08:42→13:15)
--- NOTE | 2017-09-20 08:55 | RAD ---
CHEST 1 VIEW: HISTORY: Dyspnea. COMPARISON: 09/19/17. FINDINGS: Xs is magnified and upper limits of normal in size. Pulmonary vasculature remains engorged with patc hy bibasilar infiltrates and bilateral pleural fluid. Mediastinum is midline. Lines and tubes appea r unchanged in position. clinical research monitor leads overlie the chest. IMPRESSION: Bilateral pleural fluid, pulmonary vascular congestion, and other findings are stable. POS: [facility]
--- NOTE | 2017-09-20 12:49 | PDOC.FM ---
- Subjective Subjective: Patient had no significant updates overnight, stable on ventilator. Will wake up and follow commands during sedation holiday. Has been having BM. - Objective MAR Reviewed: Yes Vital Signs & Weight: Vital Signs (12 hours) Temp Pulse Resp BP Pulse Ox 09/20/17 12:00 97.0 F L 20 09/20/17 10:24 96 169/90 H 09/20/17 10:00 20 09/20/17 09:30 89 171/97 H 09/20/17 08:01 20 09/20/17 08:00 97.0 F L 71 20 93 L 09/20/17 06:57 55 L 128/79 09/20/17 06:00 20 09/20/17 04:00 97.0 F L 20 09/20/17 03:53 60 09/20/17 02:02 58 L 20 96 09/20/17 02:00 60 20 Weight Admit Weight 135.171 kg Weight 134.6 kg Most Recent Monitor Data Heart Rate from ECG 84 NIBP 165/86 NIBP BP-Mean 118 Respiration from ECG 25 SpO2 100 I&O: 09/19/17 09/20/17 09/21/17 06:59 06:59 06:59 Intake Total 3517 4112 Output Total 2145 2235 2500 Balance 1372 1877 -2500 Result Diagrams: 09/20/17 03:45 09/20/17 03:45 <Kamron Shukla - Last Filed: 09/20/17 12:48> - Objective Vital Signs & Weight: Vital Signs (12 hours) Temp Pulse Resp Pulse Ox 09/21/17 10:00 10 L 09/21/17 09:53 57 L 09/21/17 08:00 98.0 F 63 12 99 09/21/17 06:17 56 L 09/21/17 06:00 12 09/21/17 04:00 98.0 F 12 09/21/17 02:12 86 09/21/17 02:11 90 18 98 09/21/17 02:00 12 09/21/17 00:16 64 09/21/17 00:00 97.9 F 12 Weight Admit Weight 135.171 kg Weight 126.3 kg Most Recent Monitor Data Heart Rate from ECG 59 NIBP 179/95 NIBP BP-Mean 114 Respiration from ECG 19 SpO2 97 I&O: 09/20/17 09/21/17 09/22/17 06:59 06:59 06:59 Intake Total 4112 2593 Output Total 9815 5085 425 Balance 1877 -2492 -425 Result Diagrams: 09/21/17 05:44 09/21/17 05:44 <Chad Rojas - Last Filed: 09/21/17 10:42> Phys Exam - Physical Examination Constitutional: NAD HEENT: moist MMs Respiratory: no wheezing, clear to auscultation bilateral diminished Cardiovascular: RRR Gastrointestinal: soft, positive bowel sounds umbilical hernia non-erythematous swelling in hands and feet sedated <Kamron Shukla - Last Filed: 09/20/17 12:48> Dx/Plan (1) Septic shock Code(s): A41.9 - SEPSIS, UNSPECIFIED ORGANISM; R65.21 - SEVERE SEPSIS WITH SEPTIC SHOCK Status: Acute Plan: likely influenza pneumonia BP maintaining without levophed continue with zosyn, levaquin, tamiflu vanc stopped today Bld Cx negative after 48hrs midline in place (2) Acute respiratory failure with hypoxia and hypercarbia Code(s): J96.01 - ACUTE RESPIRATORY FAILURE WITH HYPOXIA; J96.02 - ACUTE RESPIRATORY FAILURE WITH HYPERCAPNIA Status: Acute Plan: Continue with endotrachial intubation until patient is able to support breaths possibly consider trach next week if patient appears to continue to require intubation patient changed to bilevel today, , RR20, FiO2: 40% enteral tube feeds (3) Hyponatremia Code(s): E87.1 - HYPO-OSMOLALITY AND HYPONATREMIA Status: Resolved (4) Leukocytosis Code(s): D72.829 - ELEVATED WHITE BLOOD CELL COUNT, UNSPECIFIED Status: Acute (5) Pneumonia and influenza Status: Acute - Plan Plan: patient stable, gradually weaning down on vent. Lasix tolerated well yesterday, will continue today. Also titrating down solu-medrol <Kamron Shukla - Last Filed: 09/20/17 12:48> Attending Addendum - Attending Addendum I personally evaluated the patient and discussed the management with Dr. Shukla on 09/20. I agree with the History, Examination, Assessment and Plan documented above with any addition or exceptions noted below. Stably critically ill. Wean vent as tolerated. Daily sedation trials. Monitor BP and add agents PRN for control. Continue TF. Taper steroids. Antimicrobials per previous plan. DVT/GI ppx. <Chad Rojas - Last Filed: 09/21/17 10:42>
[2017-09-21] MEDS: Piperacillin/Tazobactam 4.5 GM in Sodium Chloride 0.9% 100 ML IVPB SCH ×4 (00:04→17:25)
[2017-09-21] MEDS: Metoclopramide HCl 10 MG/2 ML VIAL IVP SCH ×4 (02:56→21:53)
[2017-09-21] MEDS: Propofol 1,000 MG/100 ML VIAL IV PRN ×4 (03:26→21:53)
[2017-09-21] MEDS: Lorazepam 2 MG/ML VIAL SLOW IVP PRN ×3 (03:26→15:54)
[2017-09-21 06:13] LABS: ALT (SGPT) 40 U/L (8-55); AST (SGOT) 41 U/L (5-34); Alkaline Phosphatase 33 U/L (40-150); Anion Gap 9 mmol/L (10-20); BUN (Urea Nitrogen) 36 mg/dL (8.4-25.7); Bilirubin, Total 0.4 mg/dL (0.2-1.2); Calc. Creatinine Clearance 178 mL/min (70-130); Calcium 8.6 mg/dL (7.8-10.44); Carbon Dioxide 31 mmol/L (23-31); Chloride 105 mmol/L (98-107); Estimated GFR-MDRD Greater than 90; Protein, Total 5.5 g/dL (5.8-8.1)
[2017-09-21 06:39] LABS: Band 2 % (5-11); Hematocrit 36.6 % (42.0-52.0); Mean Platelet Volume 7.8 fL (7.4-10.4); Metamyelocyte 1 % (0-0); Myelocyte 1 % (0-0); Neutrophil 80 % (42-75); Red Blood Cell (RBC) Count 4.19 mill/uL (4.70-6.10); White Blood Cell (WBC) Count 10.1 thou/uL (4.8-10.8)
[2017-09-21 06:39] LABS: Oxyhemoglobin 93.4 % (94.0-97.0); Sodium 140 mmol/L (135-148)
[2017-09-21 06:40] LABS: Mode BI-LEVEL; PIP 12 cmH2O; Pressure Support 10 cmH2O; Vent YES
[2017-09-21] MEDS: Enoxaparin Sodium 40 MG/0.4 ML SYRINGE SC SCH (08:14)
--- NOTE | 2017-09-21 09:07 | RAD ---
PORTABLE CHEST: COMPARISON: 09/18/17 exam. FINDINGS: Endotracheal and NG tubes are in satisfactory position. Parenchymal lung changes and associated pleu ral changes in the right base appear fairly stable. Some of the changes in the left base appear slig htly improved. The right-sided subclavian line has been removed since that prior study. IMPRESSION: Persistent right lower lobe pleural and parenchymal lung change. Some improvement to the changes in the left base. POS: [facility]
[2017-09-21] MEDS: Famotidine 20 MG TAB PER TUBE SCH ×2 (09:11→21:52)
[2017-09-21] MEDS: Aspirin 325 MG TAB PER TUBE SCH (09:13)
[2017-09-21] MEDS ORDERED: Furosemide 40 MG/4 ML VIAL SLOW IVP SCH (09:15)
[2017-09-21] MEDS: Oseltamivir 6 MG/ML ORAL SUSP PER TUBE SCH ×2 (09:29→21:53)
[2017-09-21] MEDS: Insulin Regular 300 UNITS/3 ML VIAL SC PRN ×2 (09:56→15:54)
--- NOTE | 2017-09-21 11:27 | PRG ---
DATE OF SERVICE: 09/21/2017 SUBJECTIVE: Mr. Puente had a sedation holiday, would awaken and follow commands. He sedated again. OBJECTIVE: VITAL SIGNS: Respiratory rate is 12 per mechanical ventilation, turning to a rate of 10. His low PE EP is 12, turned to 8. His oximetry is 100%. His blood pressure was mildly elevated at 166/106 then 178/88. LUNGS: Clear anteriorly. HEART: Regular rhythm. ABDOMEN: Soft. LABORATORY DATA: White count 10.1, hemoglobin 11.7, platelets 335,000. Sodium 140, potassium 4.6, c hloride 105, bicarbonate 31, BUN 36, creatinine 0.7. Intake and output is negative 2492. Chest radi ograph shows findings suggestive of a right effusion and his left lung is almost clear. IMPRESSION: 1. Pneumonia. 2. Influenza. 3. Respiratory failure. 4. Obesity. 5. Right pleural effusion. We will continue to decrease ventilatory support, probably switch him to volume ventilation tomorrow. I can give him another dose of Lasix today to see if we can dry him out little more. Hopefully, he will progress towards a point of weaning soon. Critical care time was 30 minutes.
--- NOTE | 2017-09-21 14:20 | ADD-PRG ---
DATE OF SERVICE: 09/21/2017 ADDENDUM This is an addendum to the note of Dr. Bibiana Redmond. Mr. Puente remains on ventilatory support. Intensive care will attempt to decrease his ventilatory sup port and work towards weaning him. Vital signs are stable and in fact he is slightly hypertensive. Chest x-ray shows his pneumonia continuing to clear.
--- NOTE | 2017-09-21 21:15 | PDOC.FM ---
- Subjective Subjective: pt remains intubated and sedated. per night RN- had agitation over night during sedation vacation but otherwise no concerns. remains intubated on BILEVEL - Objective MAR Reviewed: Yes Vital Signs & Weight: Vital Signs (12 hours) Temp Pulse Resp Pulse Ox 09/21/17 18:32 59 L 09/21/17 18:31 60 10 L 100 09/21/17 18:00 10 L 09/21/17 16:00 98.0 F 10 L 09/21/17 14:43 58 L 09/21/17 14:00 10 L 09/21/17 12:03 56 L 09/21/17 12:00 97.9 F 10 L 09/21/17 10:00 10 L 09/21/17 09:53 57 L Weight Admit Weight 135.171 kg Weight 126.3 kg Most Recent Monitor Data Heart Rate from ECG 56 NIBP 130/75 NIBP BP-Mean 97 Respiration from ECG 20 SpO2 99 I&O: 09/20/17 09/21/17 09/22/17 06:59 06:59 06:59 Intake Total 4112 2593 1213 Output Total 2235 5085 3681 Balance 7071 -9033 -4778 Result Diagrams: 09/21/17 05:44 09/21/17 05:44 Phys Exam - Physical Examination Constitutional: NAD HEENT: moist MMs, oral pharynx no lesions Neck: no nodes poor air movement in right lung, faint ronchi in bilateral lung denis Cardiovascular: RRR, no significant murmur Gastrointestinal: soft, non-tender, no distention, positive bowel sounds trace LE edema sedated Skin: no rash, normal turgor Dx/Plan (1) Acute respiratory failure with hypoxia and hypercarbia Code(s): J96.01 - ACUTE RESPIRATORY FAILURE WITH HYPOXIA; J96.02 - ACUTE RESPIRATORY FAILURE WITH HYPERCAPNIA Status: Acute (2) Sepsis due to pneumonia Code(s): J18.9 - PNEUMONIA, UNSPECIFIED ORGANISM; A41.9 - SEPSIS, UNSPECIFIED ORGANISM Status: Acute (3) Influenza, pneumonia Code(s): J11.00 - FLU DUE TO UNIDENTIFIED FLU VIRUS W UNSP TYPE OF PNEUMONIA Status: Acute (4) Influenza A (H1N1) Code(s): J10.1 - FLU DUE TO OTH IDENT INFLUENZA VIRUS W OTH RESP MANIFEST Status: Acute (5) Septic shock Code(s): A41.9 - SEPSIS, UNSPECIFIED ORGANISM; R65.21 - SEVERE SEPSIS WITH SEPTIC SHOCK Status: Resolved (6) Acute kidney injury Code(s): N17.9 - ACUTE KIDNEY FAILURE, UNSPECIFIED Status: Resolved - Plan Plan: 61 yo CM with initial septic shock due to Influenza A (H1N1) with resultant pneumonia and respiratory failure. Has been off pressors for 2 days now and is stably critically ill- 1) Acute hypoxic respiratory failure- Remains intubated on Bilevel. Wean per pulm, however unlikely to occur soon. May be a good candidate for trach/peg within the following week. Continue TPN. 2) Sepsis secondary to influenza pneumonia- off levophed with now hypertension. improving from sepsis standpoint. continue with zosyn, levaquin, tamiflu as antimicrobial agents. vanc D/C'ed Bld Cx neg @ 48hrs 3) Influnza A (H1N1)- continue tamiflu until no longer critically ill. Attending-
[2017-09-21] MEDS: Acetaminophen 325 MG TAB PO PRN (21:51)
[2017-09-22] MEDS: Piperacillin/Tazobactam 4.5 GM in Sodium Chloride 0.9% 100 ML IVPB SCH ×5 (00:22→23:37)
[2017-09-22] MEDS: Lorazepam 2 MG/ML VIAL SLOW IVP PRN ×5 (02:24→23:35)
[2017-09-22] MEDS: Propofol 1,000 MG/100 ML VIAL IV PRN ×7 (02:24→19:20)
[2017-09-22] MEDS: Metoclopramide HCl 10 MG/2 ML VIAL IVP SCH ×4 (02:24→20:35)
[2017-09-22 05:53] LABS: Band 2 % (5-11); Hematocrit 40.2 % (42.0-52.0); Mean Platelet Volume 7.9 fL (7.4-10.4); Metamyelocyte 1 % (0-0); Neutrophil 82 % (42-75); Red Blood Cell (RBC) Count 4.61 mill/uL (4.70-6.10); White Blood Cell (WBC) Count 13.7 thou/uL (4.8-10.8)
[2017-09-22 06:11] LABS: ALT (SGPT) 83 U/L (8-55); AST (SGOT) 71 U/L (5-34); Alkaline Phosphatase 36 U/L (40-150); Anion Gap 10 mmol/L (10-20); BUN (Urea Nitrogen) 40 mg/dL (8.4-25.7); Bilirubin, Total 0.6 mg/dL (0.2-1.2); Calc. Creatinine Clearance 173 mL/min (70-130); Calcium 8.9 mg/dL (7.8-10.44); Carbon Dioxide 31 mmol/L (23-31); Chloride 102 mmol/L (98-107); Estimated GFR-MDRD Greater than 90; Protein, Total 5.7 g/dL (5.8-8.1)
[2017-09-22] MEDS ORDERED: Furosemide 40 MG/4 ML VIAL SLOW IVP SCH (07:45)
[2017-09-22] MEDS ORDERED: Labetalol HCl 100 MG/20 ML VIAL SLOW IVP PRN (07:48)
[2017-09-22] MEDS: Enoxaparin Sodium 40 MG/0.4 ML SYRINGE SC SCH (08:27)
[2017-09-22] MEDS: Famotidine 20 MG TAB PER TUBE SCH ×2 (08:27→20:34)
[2017-09-22] MEDS: Aspirin 325 MG TAB PER TUBE SCH (08:27)
[2017-09-22] MEDS: Enalaprilat Dihydrate 1.25 MG/ML VIAL SLOW IVP SCH ×4 (08:44→20:33)
[2017-09-22] MEDS: Oseltamivir 6 MG/ML ORAL SUSP PER TUBE SCH (09:17)
[2017-09-22] MEDS: Fentanyl 20 MCG/ML 250 ML IVPB SCH (10:12)
--- NOTE | 2017-09-22 10:29 | RAD ---
PORTABLE SPINE CHEST: HISTORY: Respiratory distress. COMPARISON: Prior day's study. FINDINGS: Endotracheal and NG tubes are in satisfactory position. Pleural and parenchymal changes in the right lung base are stable. There is increased obscuration to the left hemidiaphragm. Some of this could be technique related, but could indicate some effusion or atelectasis. IMPRESSION: Some increased pleural and/or parenchymal density in the left base. Otherwise, stable chest. POS: [facility]
[2017-09-22] MEDS: Insulin Regular 300 UNITS/3 ML VIAL SC PRN ×2 (10:32→15:12)
[2017-09-22 11:15] LABS: Oxyhemoglobin 89.7 % (94.0-97.0); Sodium 139 mmol/L (135-148)
[2017-09-22 11:28] LABS: Mechanical Tidal Volume 500 ml; Modified Allen's Test NOT DONE; Pressure Support 10 cmH2O; Vent YES
[2017-09-22 11:30] LABS: Mode SIMV/PSV
--- NOTE | 2017-09-22 12:41 | ADD-PRG ---
DATE OF SERVICE: 09/22/2017 ADDENDUM This is an addendum to the note of Dr. Bibiana Redmond. Mr. Puente remains sedated on the ventilator. The de icer installer is working to decrease ventilatory suppo rt and eventually wean the patient. Pneumonia continues to improve. No significant clinical changes .
--- NOTE | 2017-09-22 14:41 | ULT ---
GALLBLADDER ULTRASOUND: History: Right upper quadrant pain. FINDINGS: Real-time imaging of the right upper quadrant shows a normal appearing gallbladder. Common duct is 2 mm. Technologist reports a negative ultrasound Perez's sign. Liver measures 18 cm in length. Right kidney is normal sized and not obstructed. The pancreas is obscured. IMPRESSION: Unremarkable gallbladder ultraosund. POS: [facility]
--- NOTE | 2017-09-22 17:14 | PDOC.FM ---
- Subjective Subjective: pt remains intubated and sedated. agitated and anxious with weaned sedation this morning. no events overnight per nursing - Objective MAR Reviewed: Yes Vital Signs & Weight: Vital Signs (12 hours) Temp Pulse Resp BP Pulse Ox 09/22/17 17:06 142/71 H 09/22/17 16:00 97.9 F 17 09/22/17 15:57 128/76 09/22/17 15:50 68 128/76 09/22/17 15:49 69 15 96 09/22/17 14:00 15 09/22/17 12:00 98.5 F 15 09/22/17 11:22 84 19 91 L 09/22/17 11:08 99 198/110 H 09/22/17 10:00 14 09/22/17 08:44 195/106 H 09/22/17 08:25 85 195/106 H 09/22/17 08:00 98.1 F 71 14 94 L 09/22/17 07:13 92 178/100 H 09/22/17 07:12 88 14 98 09/22/17 06:00 16 Weight Admit Weight 135.171 kg Weight 132.3 kg Most Recent Monitor Data Heart Rate from ECG 85 NIBP 142/71 NIBP BP-Mean 98 Respiration from ECG 21 SpO2 93 I&O: 09/21/17 09/22/17 09/23/17 06:59 06:59 06:59 Intake Total 2593 2782 1312 Output Total 5085 5191 3450 [facility]2492 -2409 -2138 Result Diagrams: 09/22/17 05:29 09/22/17 05:29 Phys Exam - Physical Examination mildly anxious appearing HEENT: moist MMs, oral pharynx no lesions mild JVD poor air mvmt right lung with ronchi. Cardiovascular: RRR, no significant murmur Gastrointestinal: soft, non-tender Musculoskeletal: edema present 1+ pitting edema to all extremities Deviation from normal: sedated, anxious appearing Dx/Plan (1) Acute respiratory failure with hypoxia and hypercarbia Code(s): J96.01 - ACUTE RESPIRATORY FAILURE WITH HYPOXIA; J96.02 - ACUTE RESPIRATORY FAILURE WITH HYPERCAPNIA Status: Acute (2) Sepsis due to pneumonia Code(s): J18.9 - PNEUMONIA, UNSPECIFIED ORGANISM; A41.9 - SEPSIS, UNSPECIFIED ORGANISM Status: Acute (3) Influenza, pneumonia Code(s): J11.00 - FLU DUE TO UNIDENTIFIED FLU VIRUS W UNSP TYPE OF PNEUMONIA Status: Acute (4) Influenza A (H1N1) Code(s): J10.1 - FLU DUE TO OTH IDENT INFLUENZA VIRUS W OTH RESP MANIFEST Status: Acute (5) Diastolic dysfunction Code(s): I51.9 - HEART DISEASE, UNSPECIFIED Status: Acute (6) Septic shock Code(s): A41.9 - SEPSIS, UNSPECIFIED ORGANISM; R65.21 - SEVERE SEPSIS WITH SEPTIC SHOCK Status: Resolved (7) Acute kidney injury Code(s): N17.9 - ACUTE KIDNEY FAILURE, UNSPECIFIED Status: Resolved - Plan Plan: 61 yo CM with initial septic shock due to Influenza A (H1N1) with resultant pneumonia and respiratory failure. Has been off pressors for 2 days now and is stably critically ill. No longer in septic shock. -- 1) Acute hypoxic respiratory failure- Remains intubated on Bilevel. Wean per pulm, however unlikely to occur soon. May be a good candidate for trach/peg within the following week. Continue TPN. 2) Sepsis secondary to influenza pneumonia- slowly improving from sepsis standpoint. continue with zosyn, levaquin, tamiflu as antimicrobial agents. Bld Cx neg @ 48hrs 3) Influnza A (H1N1)- continue tamiflu until no longer critically ill. 4) Transaminitis- may be secondary to hepatic congestion due to appearance of volume overload today. lasix IV 40mg this morning-- will monitor I&Os closely. check hepatitis panel & RUQ US. 5) Diastolic dysfunction- likely due to long-standing HTN. diuresis today as clinically appears volume overloaded. monitor I&Os, daily weights. 6) HTN, uncontrolled- d/c cardizem as SBP appears to be worse start enalapril scheduled and prn labetolol & hydralazine. may benefit from HCTZ or CCB if needing additional agent. Attending- Dr. Addison
[2017-09-22] MEDS: Acetaminophen 325 MG TAB PO PRN (20:34)
--- NOTE | 2017-09-22 23:37 | PRG ---
DATE OF SERVICE: 09/22/2017 SUBJECTIVE: Mr. Puente exhaled tidal volumes were 750 yesterday and up to 900 this morning. He has been placed back on volume ventilation. His heart rate is 81, this evening oximetry is 94, blood pressure 177/97. Intake and output, negative 2409. Chest radiograph still shows haziness in his left base. OBJECTIVE: LUNGS: Clear anteriorly. HEART: Regular rhythm. ABDOMEN: Soft. LABORATORY DATA: White count 13.7, hemoglobin 12.7, platelets 335,000. Sodium 138, potassium 4.5, chloride 102, bicarb 31, BUN 40, creatinine 0.83. Liver enzymes were mildly elevated. IMPRESSION: 1. Pneumonia with respiratory failure. 2. Influenza. 3. Obesity. 4. Pleural effusion. PLAN: Continue current care, working towards weaning in the next couple of days hopefully. WEST[place]
[2017-09-23] MEDS: Metoclopramide HCl 10 MG/2 ML VIAL IVP SCH ×4 (02:46→21:04)
[2017-09-23] MEDS: Enalaprilat Dihydrate 1.25 MG/ML VIAL SLOW IVP SCH ×4 (02:46→21:05)
[2017-09-23] MEDS: Propofol 1,000 MG/100 ML VIAL IV PRN ×6 (03:20→21:10)
[2017-09-23 05:43] LABS: #Eosinphils 0.1 thou/uL (0.0-0.7); #Lymphocytes 1.1 thou/uL (1.20-3.40); #Monocytes 1.3 thou/uL (0.11-0.59); #Neutrophils 12.7 thou/uL (1.40-6.50); %Basophils 0.1 % (0.0-1.0); %Eosinophils 0.4 % (0.0-10.0); %Lymphocytes 7.2 % (21.0-51.0); %Monocytes 8.3 % (0.0-10.0); Hematocrit 44.7 % (42.0-52.0); Mean Platelet Volume 8.7 fL (7.4-10.4); Red Blood Cell (RBC) Count 5.14 mill/uL (4.70-6.10); White Blood Cell (WBC) Count 15.2 thou/uL (4.8-10.8)
[2017-09-23 05:55] LABS: ALT (SGPT) 89 U/L (8-55); AST (SGOT) 46 U/L (5-34); Alkaline Phosphatase 34 U/L (40-150); Anion Gap 13 mmol/L (10-20); BUN (Urea Nitrogen) 43 mg/dL (8.4-25.7); Bilirubin, Total 0.5 mg/dL (0.2-1.2); Calc. Creatinine Clearance 181 mL/min (70-130); Calcium 8.9 mg/dL (7.8-10.44); Carbon Dioxide 28 mmol/L (23-31); Chloride 100 mmol/L (98-107); Estimated GFR-MDRD Greater than 90; Globulin 3.2 g/dL (2.4-3.5)
[2017-09-23] MEDS: Piperacillin/Tazobactam 4.5 GM in Sodium Chloride 0.9% 100 ML IVPB SCH ×4 (06:01→23:51)
[2017-09-23] MEDS: hydrALAZINE 20 MG/ML VIAL SLOW IVP PRN (06:35)
[2017-09-23 07:02] LABS: Sodium 137 mmol/L (135-148)
[2017-09-23 07:03] LABS: Mechanical Tidal Volume 500 ml; Mode SIMV.PSV; Modified Allen's Test POSITIVE; Pressure Support 10 cmH2O; Vent YES
--- NOTE | 2017-09-23 08:42 | RAD ---
PORTABLE CHEST: HISTORY: Respiratory distress. COMPARISON: Prior day's study. FINDINGS: The endotracheal and NG tubes are in satisfactory position. The parenchymal lung changes are fairly similar to the prior exam. IMPRESSION: Stable chest. POS: [facility]
[2017-09-23] MEDS: Famotidine 20 MG TAB PER TUBE SCH ×2 (08:50→21:07)
[2017-09-23] MEDS: Furosemide 20 MG/2 ML VIAL SLOW IVP SCH (08:50)
[2017-09-23] MEDS: Aspirin 325 MG TAB PER TUBE SCH (08:51)
[2017-09-23] MEDS: Enoxaparin Sodium 40 MG/0.4 ML SYRINGE SC SCH (08:51)
--- NOTE | 2017-09-23 08:51 | PRG ---
DATE OF SERVICE: 09/23/2017 Thirty-five minutes critical care time. SUBJECTIVE: The patient is awake and alert and follows commands. He remains intubated on mechanical ventilation. PHYSICAL EXAMINATION: VITAL SIGNS: His temperature is 97.9, pulse 101, blood pressure 144/89, 24-hour intake 2852, output 6225. HEENT: Unremarkable. NECK: No JVD. CHEST: Few crackles in the bases. CARDIAC: S1 and S2 regular. ABDOMEN: Soft. EXTREMITIES: No edema. LABORATORY DATA: White blood cell count 15, hematocrit 44, platelet count 234, pH 7.49, pCO2 of 40, pO2 of 54 on SIMV rate 10, tidal volume 500, PEEP 8, pressure support 10, FIO2 40%. Sodium 136, pota ssium 4.9, chloride 100, CO2 28, BUN 43, creatinine 0.7, glucose 125. Chest x-ray shows some clearin g. ASSESSMENT: 1. Bilateral pneumonia. 2. Acute respiratory failure requiring mechanical ventilation. PLAN: 1. Begin pressure support and weaning trials today. 2. Continue antibiotics. 3. Continue steroids.
[2017-09-23] MEDS: Lorazepam 2 MG/ML VIAL SLOW IVP PRN ×4 (08:58→21:06)
--- NOTE | 2017-09-23 10:26 | PDOC.FM ---
- Subjective Subjective: Patient continues to be agitated especially with weaning trials. He is now in 2 -point restraints. - Objective MAR Reviewed: Yes Vital Signs & Weight: Vital Signs (12 hours) Temp Pulse Resp BP Pulse Ox 09/23/17 10:00 17 09/23/17 08:00 25 H 09/23/17 07:55 169/88 H 09/23/17 07:13 97.9 F 93 23 H 97 09/23/17 07:00 97.9 F 09/23/17 06:54 106 H 184/101 H 09/23/17 06:52 107 H 33 H 98 09/23/17 06:35 84 184/101 H 09/23/17 06:00 17 09/23/17 04:00 97.9 F 16 09/23/17 03:24 71 09/23/17 02:46 140/87 09/23/17 02:00 14 09/23/17 00:00 98.0 F 16 09/22/17 22:48 73 151/96 H 95 Weight Admit Weight 135.171 kg Weight 131.7 kg Most Recent Monitor Data Heart Rate from ECG 83 NIBP 125/62 NIBP BP-Mean 73 Respiration from ECG 11 SpO2 95 I&O: 09/22/17 09/23/17 09/24/17 06:59 06:59 06:59 Intake Total 4540 2852 90 Output Total 7678 5288 820 [facility]2409 -2373 -730 Result Diagrams: 09/23/17 05:24 09/23/17 05:24 Phys Exam - Physical Examination Constitutional: NAD (sedated) Respiratory: clear to auscultation bilateral Cardiovascular: RRR Gastrointestinal: soft, non-tender Musculoskeletal: no edema Psychiatric: A&O x 3 Dx/Plan (1) Sepsis due to pneumonia Code(s): J18.9 - PNEUMONIA, UNSPECIFIED ORGANISM; A41.9 - SEPSIS, UNSPECIFIED ORGANISM Status: Acute Plan: WBC increased from 13 to 15 today. Remains afebrile. Blood cx neg @ 5 days. continue with zosyn, levaquin (2) Acute respiratory failure requiring reintubation Code(s): J96.00 - ACUTE RESPIRATORY FAILURE, UNSP W HYPOXIA OR HYPERCAPNIA Status: Acute Plan: Remains intubated on now on pressure support 14. Continue to weaning trial as tolerated. Continue TPN. (3) Influenza A (H1N1) Code(s): J10.1 - FLU DUE TO OTH IDENT INFLUENZA VIRUS W OTH RESP MANIFEST Status: Acute Plan: Pt has completed course of Tamiflu. (4) Diastolic dysfunction Code(s): I51.9 - HEART DISEASE, UNSPECIFIED Status: Acute Plan: Likely 2/2 longstanding HTN. diuresis with Lasix 20 mg QD started yesterday due to concern for volume overload, however no significant edema present today. Will continue until diuresis slows down. I/O balance of -2373 ml. monitor I&Os, daily weights. (5) Hypertension Code(s): I10 - ESSENTIAL (PRIMARY) HYPERTENSION Status: Acute Plan: Pt likely has hx of longstanding HTN due to presence of diastolic dysfunction. Home meds unknown. Continue scheduled Enalapril QID. Labetalol prn. - Plan Plan: 4) Transaminitis- may be secondary to hepatic congestion due to appearance of volume overload today. lasix IV 40mg this morning-- will monitor I&Os closely. check hepatitis panel & RUQ US. 6) HTN, uncontrolled- d/c cardizem as SBP appears to be worse start enalapril scheduled and prn labetolol & hydralazine. may benefit from HCTZ or CCB if needing additional agent. Attending- Dr. Addison
--- NOTE | 2017-09-23 10:53 | PDOC.FM ---
- Subjective Subjective: Patient continues to have periods of agitation especially during weaning trials. He is now requiring 2-point soft restraints. - Objective MAR Reviewed: Yes Vital Signs & Weight: Vital Signs (12 hours) Temp Pulse Resp BP Pulse Ox 09/23/17 10:00 17 09/23/17 08:00 25 H 09/23/17 07:55 169/88 H 09/23/17 07:13 97.9 F 93 23 H 97 09/23/17 07:00 97.9 F 09/23/17 06:54 106 H 184/101 H 09/23/17 06:52 107 H 33 H 98 09/23/17 06:35 84 184/101 H 09/23/17 06:00 17 09/23/17 04:00 97.9 F 16 09/23/17 03:24 71 09/23/17 02:46 140/87 09/23/17 02:00 14 09/23/17 00:00 98.0 F 16 Weight Admit Weight 135.171 kg Weight 131.7 kg Most Recent Monitor Data Heart Rate from ECG 84 NIBP 110/59 NIBP BP-Mean 73 Respiration from ECG 2 SpO2 95 I&O: 09/22/17 09/23/17 09/24/17 06:59 06:59 06:59 Intake Total 4258 7134 90 Output Total 5191 5225 820 [facility]2409 -2373 -730 Result Diagrams: 09/23/17 05:24 09/23/17 05:24 <Lexi Howard - Last Filed: 09/23/17 10:55> - Objective Vital Signs & Weight: Vital Signs (12 hours) Temp Pulse Resp BP Pulse Ox 09/23/17 14:00 18 09/23/17 13:58 107/59 L 09/23/17 12:00 98.5 F 14 09/23/17 11:37 79 122/68 09/23/17 10:00 17 09/23/17 08:00 25 H 09/23/17 07:55 169/88 H 09/23/17 07:13 97.9 F 93 23 H 97 09/23/17 07:00 97.9 F 09/23/17 06:54 106 H 184/101 H 09/23/17 06:52 107 H 33 H 98 09/23/17 06:35 84 184/101 H 09/23/17 06:00 17 09/23/17 04:00 97.9 F 16 09/23/17 03:24 71 09/23/17 02:46 140/87 Weight Admit Weight 135.171 kg Weight 131.7 kg Most Recent Monitor Data Heart Rate from ECG 67 NIBP 107/65 NIBP BP-Mean 77 Respiration from ECG 21 SpO2 99 I&O: 09/22/17 09/23/17 09/24/17 06:59 06:59 06:59 Intake Total 2783 2864 213 Output Total 4975 5233 1800 Balance -1400 -6903 -1560 Result Diagrams: 09/23/17 05:24 09/23/17 05:24 <Bran Keating - Last Filed: 09/23/17 14:28> Phys Exam - Physical Examination Constitutional: NAD Respiratory: clear to auscultation bilateral Cardiovascular: RRR Gastrointestinal: soft, non-tender ventral hernia Musculoskeletal: no edema Neurological: moves all 4 limbs <Lexi Howard - Last Filed: 09/23/17 10:55> Dx/Plan (1) Sepsis due to pneumonia Code(s): J18.9 - PNEUMONIA, UNSPECIFIED ORGANISM; A41.9 - SEPSIS, UNSPECIFIED ORGANISM Status: Acute Plan: WBC increased from 13 to 15 today. Remains afebrile. Blood cx neg @ 5 days. continue with zosyn, levaquin (2) Acute respiratory failure requiring reintubation Code(s): J96.00 - ACUTE RESPIRATORY FAILURE, UNSP W HYPOXIA OR HYPERCAPNIA Status: Acute Plan: Remains intubated on now on pressure support 14. Continue to weaning trial as tolerated. Continue TPN. (3) Influenza A (H1N1) Code(s): J10.1 - FLU DUE TO OTH IDENT INFLUENZA VIRUS W OTH RESP MANIFEST Status: Acute Plan: Pt has completed course of Tamiflu. Droplet precautions have been discontinued. (4) Diastolic dysfunction Code(s): I51.9 - HEART DISEASE, UNSPECIFIED Status: Acute Plan: Likely 2/2 longstanding HTN. diuresis with Lasix 20 mg QD started yesterday due to concern for volume overload, however no significant edema present today. Will continue until diuresis slows down. I/O balance of -2373 ml. monitor I&Os, daily weights. (5) Hypertension Code(s): I10 - ESSENTIAL (PRIMARY) HYPERTENSION Status: Acute Plan: Pt likely has hx of longstanding HTN due to presence of diastolic dysfunction. Home meds unknown. Continue scheduled Enalapril QID. Labetalol prn. <Lexi Howard - Last Filed: 09/23/17 10:55> Attending Addendum - Attending Addendum I personally evaluated the patient and discussed the management with Dr. Howard. I agree with the History, Examination, Assessment and Plan documented above with any addition or exceptions noted below. <Bran Keating - Last Filed: 09/23/17 14:28>
[2017-09-23] MEDS: Acetaminophen 325 MG TAB PO PRN (21:06)
[2017-09-24] MEDS: Enalaprilat Dihydrate 1.25 MG/ML VIAL SLOW IVP SCH ×4 (02:59→21:04)
[2017-09-24] MEDS: Metoclopramide HCl 10 MG/2 ML VIAL IVP SCH ×4 (02:59→21:02)
[2017-09-24 04:47] LABS: #Eosinphils 0.1 thou/uL (0.0-0.7); #Lymphocytes 1.2 thou/uL (1.20-3.40); #Monocytes 1.3 thou/uL (0.11-0.59); #Neutrophils 10.5 thou/uL (1.40-6.50); %Basophils 0.1 % (0.0-1.0); %Eosinophils 0.7 % (0.0-10.0); %Lymphocytes 9.1 % (21.0-51.0); %Monocytes 10.2 % (0.0-10.0); Hematocrit 42.2 % (42.0-52.0); Mean Platelet Volume 7.9 fL (7.4-10.4); Red Blood Cell (RBC) Count 4.84 mill/uL (4.70-6.10); White Blood Cell (WBC) Count 13.2 thou/uL (4.8-10.8)
[2017-09-24 05:32] LABS: ALT (SGPT) 60 U/L (8-55); AST (SGOT) 21 U/L (5-34); Alkaline Phosphatase 33 U/L (40-150); Anion Gap 11 mmol/L (10-20); BUN (Urea Nitrogen) 47 mg/dL (8.4-25.7); Bilirubin, Total 0.6 mg/dL (0.2-1.2); Calc. Creatinine Clearance 172 mL/min (70-130); Calcium 8.7 mg/dL (7.8-10.44); Carbon Dioxide 30 mmol/L (23-31); Chloride 100 mmol/L (98-107); Estimated GFR-MDRD Greater than 90; Globulin 2.9 g/dL (2.4-3.5); Protein, Total 5.7 g/dL (5.8-8.1)
[2017-09-24] MEDS: Piperacillin/Tazobactam 4.5 GM in Sodium Chloride 0.9% 100 ML IVPB SCH ×3 (06:41→17:41)
[2017-09-24] MEDS: Propofol 1,000 MG/100 ML VIAL IV PRN (06:41)
--- NOTE | 2017-09-24 07:34 | PDOC.FM ---
- Subjective Subjective: Patient extubated this morning. Satting well on a venti mask. - Objective MAR Reviewed: Yes Vital Signs & Weight: Vital Signs (12 hours) Temp Pulse Resp BP Pulse Ox 09/24/17 07:26 82 167/95 H 09/24/17 07:00 98.1 F 09/24/17 06:00 20 09/24/17 04:00 98.0 F 19 09/24/17 03:15 69 99 09/24/17 02:59 111/61 09/24/17 02:00 18 09/24/17 00:00 98.0 F 17 09/23/17 23:25 70 111/61 09/23/17 23:24 99 09/23/17 22:00 17 09/23/17 21:05 122/59 L 09/23/17 20:00 97.0 F L 65 19 95 09/23/17 19:42 66 99 Weight Admit Weight 135.171 kg Weight 131.6 kg Most Recent Monitor Data Heart Rate from ECG 86 NIBP 167/95 NIBP BP-Mean 116 Respiration from ECG 14 SpO2 98 I&O: 09/23/17 09/24/17 09/25/17 06:59 06:59 06:59 Intake Total 7006 2440 Output Total 5219 3225 70 Balance -2373 -776 -70 Result Diagrams: 09/24/17 04:20 09/24/17 04:20 <Lexi Howard - Last Filed: 09/24/17 11:09> - Objective Vital Signs & Weight: Vital Signs (12 hours) Temp Pulse Resp BP Pulse Ox 09/24/17 13:54 155/105 H 09/24/17 12:00 98.7 F 98 09/24/17 10:51 115 H 22 H 97 09/24/17 08:31 195/108 H 09/24/17 07:51 100 09/24/17 07:50 100 09/24/17 07:31 98.1 F 83 22 H 98 09/24/17 07:26 82 167/95 H 09/24/17 07:00 98.1 F 09/24/17 06:00 20 09/24/17 04:00 98.0 F 19 09/24/17 03:15 69 99 09/24/17 02:59 111/61 Weight Admit Weight 135.171 kg Weight 131.6 kg Most Recent Monitor Data Heart Rate from ECG 113 NIBP 155/105 NIBP BP-Mean 115 Respiration from ECG 28 SpO2 98 I&O: 09/23/17 09/24/17 09/25/17 06:59 06:59 06:59 Intake Total 2852 2449 1035 Output Total 5261 3225 4325 Balance -6270 -554 -5887 Result Diagrams: 09/24/17 04:20 09/24/17 04:20 <Bran Keating - Last Filed: 09/24/17 14:05> Phys Exam - Physical Examination Constitutional: NAD HEENT: PERRLA Respiratory: clear to auscultation bilateral Gastrointestinal: soft, non-tender Musculoskeletal: no edema Neurological: moves all 4 limbs Psychiatric: normal affect <Lexi Howard - Last Filed: 09/24/17 11:09> Dx/Plan (1) Hypertension Code(s): I10 - ESSENTIAL (PRIMARY) HYPERTENSION Status: Acute Plan: Pt likely has hx of longstanding HTN due to presence of diastolic dysfunction. Pt unsure of home medications. Will start amlodpine. Continue PRN medications. (2) Sepsis due to pneumonia Code(s): J18.9 - PNEUMONIA, UNSPECIFIED ORGANISM; A41.9 - SEPSIS, UNSPECIFIED ORGANISM Status: Acute Plan: WBC decreased Remains afebrile. Blood cx neg @ 5 days. Day 9 of abx. will continue for another day. (3) Tachycardia Code(s): R00.0 - TACHYCARDIA, UNSPECIFIED Status: Acute Plan: Possible differential include volume depletion, infection, anxiety, withdrawal. Will order ASE protocol, 500 cc fluid bolus, continue to monitor. (4) Diastolic dysfunction Code(s): I51.9 - HEART DISEASE, UNSPECIFIED Status: Acute Plan: Likely 2/2 longstanding HTN. Will discontinue diuresis as pt no longer appears volume overloaded, and in fact appears dry. (5) Influenza A (H1N1) Code(s): J10.1 - FLU DUE TO OTH IDENT INFLUENZA VIRUS W OTH RESP MANIFEST Status: Acute Plan: Pt has completed course of Tamiflu. Droplet precautions have been discontinued. <Lexi Howard - Last Filed: 09/24/17 11:09> Attending Addendum - Attending Addendum I personally evaluated the patient and discussed the management with Dr. Howard. I agree with the History, Examination, Assessment and Plan documented above with any addition or exceptions noted below. Patient is tachycardic and requesting a beer following his extubation and cessation of sedation. It has been more than a week since his lsst Etoh, so my concern for seizure is low, but I am concerned he is having withdrawal symptoms. He is probably a little dry as well. Will allow him to po hydrate and have a beer with meals. <Bran Keating - Last Filed: 09/24/17 14:05>
[2017-09-24 07:40] LABS: Oxyhemoglobin 89.8 % (94.0-97.0); Sodium 139 mmol/L (135-148)
[2017-09-24 07:43] LABS: Mode CPAP/PSV; Modified Allen's Test POSITIVE; Pressure Support 8 cmH2O; Spontaneous Rate 27 min; Vent YES
--- NOTE | 2017-09-24 07:45 | PRG ---
DATE OF SERVICE: 09/24/2017 Thirty-five minutes critical care time. SUBJECTIVE: He remains intubated on mechanical ventilation. There have been no significant changes overnight. He was able to tolerate CPAP and pressure support trials yesterday without much difficult y. PHYSICAL EXAMINATION: VITAL SIGNS: His temperature is 98.1 with no fever overnight, pulse 86, blood pressure 167/95. A 24 -hour intake 2449, output 3225. Weight 290 pounds. HEENT: Unremarkable. NECK: No JVD, or bruits. LUNGS: Diminished breath sounds in the bases. CARDIOVASCULAR: S1, S2 regular, without murmur. ABDOMEN: Soft, nontender, nondistended. EXTREMITIES: No clubbing, cyanosis, or edema. LABORATORY DATA: White blood cell count 13.2, hemoglobin 13.7, hematocrit 42.2, platelet count 297. Sodium 136, potassium 4.5, chloride 100, CO2 30, BUN 47, creatinine 0.8, glucose 126. ABG result is pending. X-RAY FINDINGS: Chest x-ray shows bilateral small effusions. ASSESSMENT: 1. Acute respiratory failure requiring mechanical ventilation. 2. Pneumonia - community acquired. 3. Bilateral effusions. 4. Prerenal azotemia. PLAN: I will review the patient's blood gas. We are holding his sedation and I anticipate being abl e to extubate him today.
[2017-09-24] MEDS ORDERED: DC Sedation Protocol FS ONE (07:51)
--- NOTE | 2017-09-24 07:52 | RAD ---
PORTABLE SUPINE FRONTAL CHEST RADIOGRAPH: Date: 09/24/17 COMPARISON: 09/23/17. HISTORY: Ventilated CCU patient. FINDINGS: Endotracheal tube and nasogastric tube in proper position. There is perihilar and bibasilar air space disease with dense opacity in both lung bases obscuring the heart borders and hemidiaphragms, eviden ce of nonspecific bilateral lower lobe consolidation/collapse and bilateral pleural effusions. IMPRESSION: No significant interval change. POS: [facility]
[2017-09-24] MEDS: Aspirin 325 MG TAB PER TUBE SCH (08:32)
[2017-09-24] MEDS: Famotidine 20 MG TAB PER TUBE SCH ×2 (08:32→21:01)
[2017-09-24] MEDS: Enoxaparin Sodium 40 MG/0.4 ML SYRINGE SC SCH (08:32)
[2017-09-24] MEDS: Furosemide 20 MG/2 ML VIAL SLOW IVP SCH (08:32)
[2017-09-24 09:26] LABS: Hemoglobin A1c 5.8 % (4.0-6.0)
[2017-09-24] MEDS ORDERED: Sodium Chloride 0.9% 500 ML IV SCH ×2 (10:00→12:00)
[2017-09-24] MEDS ORDERED: Hydrochlorothiazide 25 MG TAB PO SCH ×2 (11:15→11:45)
[2017-09-24 13:25] LABS: Troponin I Less than 0.010 ng/mL (< 0.028)
[2017-09-24] MEDS ORDERED: Furosemide 40 MG/4 ML VIAL SLOW IVP SCH (14:00)
[2017-09-24] MEDS: Sodium Chloride 0.9% 1,000 ML IV SCH ×2 (14:19→21:07)
[2017-09-24] MEDS: hydrALAZINE 20 MG/ML VIAL SLOW IVP PRN (14:53)
[2017-09-24] MEDS: Lisinopril 10 MG TAB PO SCH (21:01)
[2017-09-25] MEDS: Piperacillin/Tazobactam 4.5 GM in Sodium Chloride 0.9% 100 ML IVPB SCH ×4 (00:41→19:59)
[2017-09-25] MEDS: Metoclopramide HCl 10 MG/2 ML VIAL IVP SCH ×4 (01:23→21:03)
[2017-09-25] MEDS: Enalaprilat Dihydrate 1.25 MG/ML VIAL SLOW IVP SCH ×2 (02:17→08:40)
[2017-09-25 04:53] LABS: #Eosinphils 0.1 thou/uL (0.0-0.7); #Lymphocytes 1.1 thou/uL (1.20-3.40); #Monocytes 1.2 thou/uL (0.11-0.59); #Neutrophils 9.8 thou/uL (1.40-6.50); %Basophils 0.4 % (0.0-1.0); %Eosinophils 0.5 % (0.0-10.0); %Monocytes 9.9 % (0.0-10.0); Hematocrit 44.3 % (42.0-52.0); Mean Platelet Volume 7.7 fL (7.4-10.4); Red Blood Cell (RBC) Count 5.07 mill/uL (4.70-6.10); White Blood Cell (WBC) Count 12.1 thou/uL (4.8-10.8)
[2017-09-25 05:02] LABS: ALT (SGPT) 47 U/L (8-55); AST (SGOT) 19 U/L (5-34); Alkaline Phosphatase 36 U/L (40-150); Anion Gap 10 mmol/L (10-20); BUN (Urea Nitrogen) 32 mg/dL (8.4-25.7); Bilirubin, Total 0.9 mg/dL (0.2-1.2); Calc. Creatinine Clearance 162 mL/min (70-130); Carbon Dioxide 33 mmol/L (23-31); Chloride 100 mmol/L (98-107); Estimated GFR-MDRD 88
--- NOTE | 2017-09-25 07:52 | EKG ---
Test Reason : Blood Pressure : / mmHG Vent. Rate : 107 BPM Atrial Rate : 107 BPM P-R Int : 168 ms QRS Dur : 086 ms QT Int : 342 ms P-R-T Axes : 034 041 036 degrees QTc Int : 456 ms Sinus tachycardia Otherwise normal ECG When compared with ECG of 15-SEP-2017 15:01, (Unconfirmed) Premature supraventricular complexes are no longer Present Confirmed by JUNIE BRASHER ([id number]) on 09/25/2017 7:51:31 AM Referred By: ANTONIO ONEAL Confirmed By:JUNIE BRASHER
--- NOTE | 2017-09-25 07:56 | RAD ---
PORTABLE CHEST: HISTORY: Respiratory distress. COMPARISON: Prior day's study. FINDINGS: Endotracheal tube and NG tubes have been removed. Heart size is borderline. There has been an impro vement to the pulmonary vascular engorgement and interstitial lung changes. IMPRESSION: Improving parenchymal lung change probably related to resolving edema. POS: [facility]
--- NOTE | 2017-09-25 08:13 | CT ---
BRAIN CT WITHOUT IV CONTRAST: HISTORY: A 61-year-old male with weakness. The patient is coming off the vent after being on it for 10 days. FINDINGS: There is some atrophy and chronic white matter ischemic changes. 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 Fairly extensive fluid within the sinuses including frontal, ethmoid, and sphenoid sin uses. There is depression of the right orbital floor suggesting an old blowout-type fracture. No ma ss or bleed. IMPRESSION: No mass or bleed or other acute intracranial process. Atrophy and chronic white matter ischemic bright ges and old left basal ganglia infarct changes. Fairly extensive amount of fluid within the sinuses. Depression of the right orbital floor, evidence for an old orbital floor fracture. POS: [facility]
--- NOTE | 2017-09-25 08:38 | PRG ---
DATE OF SERVICE: 09/25/2017 Mr. Puente was extubated yesterday. He is awake and doing well today. He had some transient weakness in his right arm which has resolved. PHYSICAL SIGNS: VITAL SIGNS: Temperature is 98.0, pulse 98, blood pressure 174/103, O2 saturation 94%, 24-hour intak e is 3726, output 8440. HEENT: Unremarkable. NECK: No JVD. LUNGS: Clear anteriorly. CARDIOVASCULAR: S1 and S2 regular. ABDOMEN: Obese and soft. EXTREMITIES: No edema. LABORATORY DATA: White blood cell count 12, hematocrit 44.3, platelet count 320. Sodium 139, potass ium 4, chloride 100, CO2 33, BUN 32, creatinine 0.8, glucose 103. Chest x-ray has improved effusions bilaterally. ASSESSMENT: 1. Status post pneumonia. 2. Status post respiratory failure. 3. Probably some component of diastolic cardiac dysfunction. PLAN: He can be transferred to the floor. Continue physical therapy. Continue antibiotics, but can probably switch to oral medications tomorrow and complete 10 total days of therapy.
[2017-09-25] MEDS: Hydrochlorothiazide 25 MG TAB PO SCH (08:40)
[2017-09-25] MEDS: Aspirin 325 MG TAB PER TUBE SCH (08:40)
[2017-09-25] MEDS: Famotidine 20 MG TAB PER TUBE SCH ×2 (08:40→20:56)
[2017-09-25] MEDS: Enoxaparin Sodium 40 MG/0.4 ML SYRINGE SC SCH (08:41)
--- NOTE | 2017-09-25 11:15 | PDOC.FM ---
- Subjective Subjective: patient doing well this morning with no complaints. No adverse events overnight. - Objective MAR Reviewed: Yes Vital Signs & Weight: Vital Signs (12 hours) Temp Pulse Resp BP Pulse Ox 09/25/17 10:45 94 18 94 L 09/25/17 08:40 174/103 H 09/25/17 08:23 93 L 09/25/17 08:22 100 16 93 L 09/25/17 07:11 98.0 F 99 28 H 92 L 09/25/17 07:00 98.0 F 09/25/17 04:00 98.5 F 09/25/17 03:15 90 20 92 L 09/25/17 00:00 98.3 F 134/73 Weight Admit Weight 135.171 kg Weight 121.6 kg Most Recent Monitor Data Heart Rate from ECG 107 NIBP 150/96 NIBP BP-Mean 108 Respiration from ECG 30 SpO2 93 I&O: 09/24/17 09/25/17 09/26/17 06:59 06:59 06:59 Intake Total 3101 3726 Output Total 3225 8440 900 Balance -116 -4714 -900 Result Diagrams: 09/25/17 03:45 09/25/17 03:45 <Lexi Howard - Last Filed: 09/25/17 11:20> - Objective Vital Signs & Weight: Vital Signs (12 hours) Temp Pulse Pulse Pulse Resp BP BP 09/25/17 16:26 98.6 F 98 17 09/25/17 13:45 121 H 165/117 H 09/25/17 12:00 98.5 F 133/79 09/25/17 10:45 94 18 09/25/17 09:50 101 H 97 139/105 H 09/25/17 08:40 174/103 H 09/25/17 08:23 09/25/17 08:22 100 16 09/25/17 07:11 98.0 F 99 28 H 09/25/17 07:00 98.0 F BP BP Pulse Ox 09/25/17 16:26 137/83 92 L 09/25/17 13:45 09/25/17 12:00 09/25/17 10:45 94 L 09/25/17 09:50 150/96 H 09/25/17 08:40 09/25/17 08:23 93 L 09/25/17 08:22 93 L 09/25/17 07:11 92 L 09/25/17 07:00 Weight Admit Weight 135.171 kg Weight 121.6 kg Most Recent Monitor Data Heart Rate from ECG 82 NIBP 133/79 NIBP BP-Mean 97 Respiration from ECG 22 SpO2 92 I&O: 09/24/17 09/25/17 09/26/17 06:59 06:59 06:59 Intake Total 3109 3726 Output Total 3225 8440 1300 Balance -116 -4714 -1300 Result Diagrams: 09/25/17 03:45 09/25/17 03:45 <Bran Keating - Last Filed: 09/25/17 17:21> Phys Exam - Physical Examination Constitutional: NAD crackles present at lung bases. Cardiovascular: RRR Gastrointestinal: soft, non-tender Musculoskeletal: no edema, pulses present focal right arm weakness earlier this morning;resolved on later repeat exam Psychiatric: A&O x 3 Skin: no rash <Lexi Howard - Last Filed: 09/25/17 11:20> Dx/Plan (1) Sepsis due to pneumonia Code(s): J18.9 - PNEUMONIA, UNSPECIFIED ORGANISM; A41.9 - SEPSIS, UNSPECIFIED ORGANISM Status: Acute Plan: WBC decreased Remains afebrile. Blood cx neg @ 5 days. Will discontinue antibiotics after today. Continue incentive spirometry; will wean oxygen as tolerated pt still requiring 4L NC to maintain saturations. (2) Influenza A (H1N1) Code(s): J10.1 - FLU DUE TO OTH IDENT INFLUENZA VIRUS W OTH RESP MANIFEST Status: Acute Plan: Pt has completed course of Tamiflu. Droplet precautions have been discontinued. (3) Hypertension Code(s): I10 - ESSENTIAL (PRIMARY) HYPERTENSION Status: Chronic QualifierTitle: Hypertension type: essential hypertension Qualified Code( s): I10 - Essential (primary) hypertension Plan: Pt likely has hx of longstanding HTN due to presence of diastolic dysfunction. HCTZ and Lisinopril started yesterday as pt is unsure of home medications. Will titrate doses as needed. (4) Tachycardia Code(s): R00.0 - TACHYCARDIA, UNSPECIFIED Status: Acute Plan: Likely secondary to deconditioning. PT on board. (5) Diastolic dysfunction Code(s): I51.9 - HEART DISEASE, UNSPECIFIED Status: Acute Plan: Likely 2/2 longstanding HTN. Will discontinue diuresis as pt no longer appears volume overloaded, and in fact appears dry. (6) Physical deconditioning Code(s): R53.81 - OTHER MALAISE Status: Acute Plan: Focal weakness resolved. CT head wnl. PT ordered. - Plan Plan: Disposition: stable, will transfer to telemetry today. <Lexi Howard - Last Filed: 09/25/17 11:20> Attending Addendum - Attending Addendum I personally evaluated the patient and discussed the management with Dr. Howard. I agree with the History, Examination, Assessment and Plan documented above with any addition or exceptions noted below. Slowly improving. Physical rehabilitation ongoing. <Bran Keating - Last Filed: 09/25/17 17:21>
[2017-09-25] MEDS: Lisinopril 10 MG TAB PO SCH (20:56)
[2017-09-26] MEDS: Piperacillin/Tazobactam 4.5 GM in Sodium Chloride 0.9% 100 ML IVPB SCH ×2 (00:02→05:15)
[2017-09-26] MEDS: Metoclopramide HCl 10 MG/2 ML VIAL IVP SCH ×2 (03:54→23:37)
[2017-09-26 06:04] LABS: #Eosinphils 0.1 thou/uL (0.0-0.7); #Monocytes 0.9 thou/uL (0.11-0.59); #Neutrophils 9.9 thou/uL (1.40-6.50); %Basophils 0.2 % (0.0-1.0); %Eosinophils 0.5 % (0.0-10.0); %Lymphocytes 8.1 % (21.0-51.0); %Monocytes 7.8 % (0.0-10.0); Hematocrit 45.9 % (42.0-52.0); Mean Platelet Volume 7.6 fL (7.4-10.4); White Blood Cell (WBC) Count 11.9 thou/uL (4.8-10.8)
[2017-09-26 06:25] LABS: ALT (SGPT) 40 U/L (8-55); AST (SGOT) 18 U/L (5-34); Alkaline Phosphatase 37 U/L (40-150); Anion Gap 10 mmol/L (10-20); BUN (Urea Nitrogen) 33 mg/dL (8.4-25.7); Bilirubin, Total 0.9 mg/dL (0.2-1.2); Calc. Creatinine Clearance 150 mL/min (70-130); Calcium 9.2 mg/dL (7.8-10.44); Carbon Dioxide 32 mmol/L (23-31); Chloride 101 mmol/L (98-107); Estimated GFR-MDRD 88; Globulin 3.1 g/dL (2.4-3.5); Protein, Total 6.2 g/dL (5.8-8.1)
--- NOTE | 2017-09-26 07:50 | PRG ---
DATE OF SERVICE: 09/26/2017 He feels better. He has not been up and ambulated yet, but is working with physical therapy. PHYSICAL EXAMINATION: VITAL SIGNS: His temperature is 98.8, pulse 100, respirations 20, O2 saturation in the low 90s on 3 liters, blood pressure 136/79. HEENT: Unremarkable. NECK: No JVD. LUNGS: Fairly clear. CARDIAC: S1 and S2 regular. ABDOMEN: Soft. EXTREMITIES: No edema. LABORATORY DATA: White blood cell count 11.9, hematocrit 45.9, platelet count 301. Sodium 138, pota ssium 4.9, chloride 101, CO2 32, BUN 33, creatinine 0.8, glucose 121. ASSESSMENT: 1. Community-acquired pneumonia. 2. Status post acute respiratory failure requiring mechanical ventilation. RECOMMENDATION: The patient has completed 10 days of antibiotics. The main goal now is rehabilitati on. I think the steroids can be stopped.
--- NOTE | 2017-09-26 10:41 | PDOC.FM ---
- Subjective Subjective: Pt doing well with no complaints this morning. No adverse events overnight. - Objective MAR Reviewed: Yes Vital Signs & Weight: Vital Signs (12 hours) Temp Pulse Resp BP Pulse Ox 09/26/17 08:00 90 16 09/26/17 03:50 98.8 F 100 20 136/79 90 L 09/26/17 01:31 100 18 96 09/26/17 01:15 94 L 09/26/17 00:00 98.5 F 101 H 20 133/77 92 L Weight Admit Weight 135.171 kg Weight 122.107 kg Most Recent Monitor Data Heart Rate from ECG 82 NIBP 133/79 NIBP BP-Mean 97 Respiration from ECG 22 SpO2 92 I&O: 09/25/17 09/26/17 09/27/17 06:59 06:59 06:59 Intake Total 3726 600 Output Total 8440 2620 [employer] Result Diagrams: 09/26/17 05:37 09/26/17 05:37 <Lexi Howard - Last Filed: 09/26/17 10:39> - Objective Vital Signs & Weight: Vital Signs (12 hours) Temp Pulse Pulse Pulse Resp BP BP 09/26/17 11:00 98.0 F 99 20 09/26/17 10:52 106 H 20 09/26/17 10:25 109 H 105 H 134/86 162/76 H 09/26/17 08:00 90 16 09/26/17 03:50 98.8 F 100 20 09/26/17 01:31 100 18 09/26/17 01:15 BP Pulse Ox Pulse Ox Pulse Ox 09/26/17 11:00 162/76 H 100 09/26/17 10:52 92 L 09/26/17 10:25 92 L 94 L 09/26/17 08:00 09/26/17 03:50 136/79 90 L 09/26/17 01:31 96 09/26/17 01:15 94 L Weight Admit Weight 129.7 kg Weight 122.107 kg Most Recent Monitor Data Heart Rate from ECG 82 NIBP 133/79 NIBP BP-Mean 97 Respiration from ECG 22 SpO2 92 I&O: 09/25/17 09/26/17 09/27/17 06:59 06:59 06:59 Intake Total 3726 600 Output Total 8440 1131 [employer] -2025 Result Diagrams: 09/26/17 05:37 09/26/17 05:37 <Bran Keating - Last Filed: 09/26/17 13:08> Phys Exam - Physical Examination Constitutional: NAD Respiratory: clear to auscultation bilateral Cardiovascular: RRR Gastrointestinal: soft, non-tender Musculoskeletal: no edema Psychiatric: A&O x 3 <Lexi Howard - Last Filed: 09/26/17 10:39> Dx/Plan (1) Sepsis due to pneumonia Code(s): J18.9 - PNEUMONIA, UNSPECIFIED ORGANISM; A41.9 - SEPSIS, UNSPECIFIED ORGANISM Status: Acute Plan: Will discontinue antibiotics after today. Continue incentive spirometry; Pt is requiring less oxygen. Continue to wean as tolerated. (2) Hypertension Code(s): I10 - ESSENTIAL (PRIMARY) HYPERTENSION Status: Chronic QualifierTitle: Hypertension type: essential hypertension Qualified Code( s): I10 - Essential (primary) hypertension Plan: BPs well-controlled. Continue current regimen. (3) Diastolic dysfunction Code(s): I51.9 - HEART DISEASE, UNSPECIFIED Status: Acute Plan: Likely 2/2 longstanding HTN. Continue BP regimen. (4) Physical deconditioning Code(s): R53.81 - OTHER MALAISE Status: Acute Plan: Patient is working with physical therapy. PT has recommended home health with physical therapy. Pt is unfunded. We will check with case management to see what options are available. <Lexi Howard - Last Filed: 09/26/17 10:39> Attending Addendum - Attending Addendum I personally evaluated the patient and discussed the management with Dr. Howard. I agree with the History, Examination, Assessment and Plan documented above with any addition or exceptions noted below. Steady improvement noted. <Bran Keating - Last Filed: 09/26/17 13:08>
[2017-09-26] MEDS: Enoxaparin Sodium 40 MG/0.4 ML SYRINGE SC SCH (10:52)
[2017-09-26] MEDS: Hydrochlorothiazide 25 MG TAB PO SCH (10:52)
[2017-09-26 12:22] VITALS: BMI 35.6
[2017-09-26] MEDS: Lisinopril 20 MG TAB PO SCH (21:09)
[2017-09-26] MEDS: Famotidine 20 MG TAB PER TUBE SCH (23:37)
[2017-09-27] MEDS: Enoxaparin Sodium 40 MG/0.4 ML SYRINGE SC SCH (09:08)
[2017-09-27] MEDS: Hydrochlorothiazide 25 MG TAB PO SCH (09:09)
--- NOTE | 2017-09-27 09:50 | PRG ---
DATE OF SERVICE: 09/27/2017 SUBJECTIVE: The patient is doing better. He is up in a chair today. He has been able to ambulate s ome. PHYSICAL EXAMINATION: VITAL SIGNS: Temperature is 98.9, pulse 80, respirations 18, O2 saturation 92% on 2-1/2 liters, bloo d pressure 129/82. HEENT: Unremarkable. NECK: No JVD. CHEST: He has inspiratory crackles at the bases. CARDIAC: S1 and S2 regular. ABDOMEN: Soft. EXTREMITIES: No edema. ASSESSMENT: 1. Status post acute respiratory failure requiring mechanical ventilation. 2. Bilateral pneumonia. PLAN: Main issue at this point is rehabilitation and weaning his oxygen. He has finished up 10 days of antibiotics. His steroids have been stopped. Hopefully, he will be able to go home by early nex t week.
--- NOTE | 2017-09-27 11:04 | PDOC.FM ---
- Subjective Subjective: CC: Ready to go home HPI: Resting in chair during exam. No concerns. States he feels stronger each day is desires to go home. - Objective MAR Reviewed: Yes Vital Signs & Weight: Vital Signs (12 hours) Temp Pulse Resp BP Pulse Ox 09/27/17 10:19 84 18 92 L 09/27/17 07:50 98.9 F 88 18 129/82 91 L 09/27/17 07:27 86 16 92 L 09/27/17 04:00 99.0 F 97 20 106/58 L 92 L 09/27/17 01:48 87 16 93 L 09/27/17 00:52 94 L Weight Admit Weight 129.7 kg Weight 119.295 kg Most Recent Monitor Data Heart Rate from ECG 82 NIBP 133/79 NIBP BP-Mean 97 Respiration from ECG 22 SpO2 92 I&O: 09/26/17 09/27/17 09/28/17 06:59 06:59 06:59 Intake Total 600 120 Output Total 2625 1500 Balance Result Diagrams: 09/26/17 05:37 09/26/17 05:37 <Eyad Ocampo W - Last Filed: 09/27/17 10:53> - Objective Vital Signs & Weight: Vital Signs (12 hours) Temp Pulse Resp BP BP Pulse Ox 09/27/17 11:25 97.9 F 99 28 H 97/65 94 L 09/27/17 10:19 84 18 92 L 09/27/17 07:50 98.9 F 88 18 129/82 91 L 09/27/17 07:27 86 16 92 L 09/27/17 04:00 99.0 F 97 20 106/58 L 92 L 09/27/17 01:48 87 16 93 L 09/27/17 00:52 94 L Weight Admit Weight 129.7 kg Weight 119.295 kg Most Recent Monitor Data Heart Rate from ECG 82 NIBP 133/79 NIBP BP-Mean 97 Respiration from ECG 22 SpO2 92 I&O: 09/26/17 09/27/17 09/28/17 06:59 06:59 06:59 Intake Total 600 120 Output Total 2625 1500 Balance -2024 Result Diagrams: 09/26/17 05:37 09/26/17 05:37 <Bran Keating - Last Filed: 09/27/17 12:50> Phys Exam - Physical Examination Constitutional: NAD HEENT: moist MMs, sclera anicteric Respiratory: no wheezing, clear to auscultation bilateral Cardiovascular: RRR, no significant murmur Gastrointestinal: soft, non-tender Musculoskeletal: no edema Neurological: non-focal, moves all 4 limbs Psychiatric: normal affect, A&O x 3 <Eyad Ocampo W - Last Filed: 09/27/17 10:53> Dx/Plan (1) Influenza A (H1N1) Code(s): J10.1 - FLU DUE TO OTH IDENT INFLUENZA VIRUS W OTH RESP MANIFEST Status: Acute Plan: Improving but still requiring oxygen. contacted case management to assist with home O2 since oxygen requirement is only problem keeping him in hospital. If able to arrange home oxygen. (2) Physical deconditioning Code(s): R53.81 - OTHER MALAISE Status: Acute Plan: Case management states no funding available for inpatient or outpatient PT/OT. Would have to pay out of pocket. She will talk with patient to discuss outpatient therapy options. (3) Hypertension Code(s): I10 - ESSENTIAL (PRIMARY) HYPERTENSION Status: Chronic QualifierTitle: Hypertension type: essential hypertension Qualified Code( s): I10 - Essential (primary) hypertension Plan: stable. <Eyad Ocampo W - Last Filed: 09/27/17 10:53> Attending Addendum - Attending Addendum I personally evaluated the patient and discussed the management with Dr. Ocampo. I agree with the History, Examination, Assessment and Plan documented above with any addition or exceptions noted below. <Bran Keating - Last Filed: 09/27/17 12:50>
[2017-09-27] MEDS: Lisinopril 20 MG TAB PO SCH (20:21)
--- NOTE | 2017-09-28 07:55 | PDOC.FM ---
- Subjective Subjective: CC: weak HPI: Resting on bedside with nebulizer treatment. States he fell yesterday afternoon while using toilet. Was up unassisted. Denies LOC, head trauma, or localized weakness. breathing improved. Discussed care with nursing staff. - Objective MAR Reviewed: Yes Vital Signs & Weight: Vital Signs (12 hours) Temp Pulse Resp BP BP BP Pulse Ox 09/28/17 06:53 90 16 94 L 09/28/17 04:13 94 L 09/28/17 03:42 107 H 16 92/54 L 09/28/17 00:10 94 L 09/27/17 20:21 115/77 09/27/17 20:00 97.7 F 87 16 115/77 Weight Admit Weight 129.7 kg Weight 119.295 kg Most Recent Monitor Data Heart Rate from ECG 82 NIBP 133/79 NIBP BP-Mean 97 Respiration from ECG 22 SpO2 92 I&O: 09/27/17 09/28/17 09/29/17 06:59 06:59 06:59 Intake Total 120 Output Total 1500 Balance -1380 Result Diagrams: 09/26/17 05:37 09/26/17 05:37 <Eyad Ocampo W - Last Filed: 09/28/17 07:53> - Objective Vital Signs & Weight: Vital Signs (12 hours) Temp Pulse Resp BP BP Pulse Ox 09/28/17 10:29 90 16 93 L 09/28/17 08:00 97.6 F 96 20 92 L 09/28/17 07:50 97.6 F 96 20 94/69 92 L 09/28/17 06:53 90 16 94 L 09/28/17 04:13 94 L 09/28/17 03:42 107 H 16 92/54 L 09/28/17 00:10 94 L Weight Admit Weight 285 lb 15.033 oz Weight 263 lb Most Recent Monitor Data Heart Rate from ECG 82 NIBP 133/79 NIBP BP-Mean 97 Respiration from ECG 22 SpO2 92 I&O: 09/27/17 09/28/17 09/29/17 06:59 06:59 06:59 Intake Total 120 Output Total 1500 Balance -1380 Result Diagrams: 09/26/17 05:37 09/26/17 05:37 <Nabil Mchugh E - Last Filed: 09/28/17 11:12> Phys Exam - Physical Examination Constitutional: NAD HEENT: moist MMs, sclera anicteric Respiratory: no wheezing, clear to auscultation bilateral coarse breath sounds lower lobes bilaterally Cardiovascular: RRR, no significant murmur Neurological: non-focal, moves all 4 limbs Psychiatric: normal affect, A&O x 3 Skin: normal turgor, cap refill <2 seconds <Eyad Ocampo W - Last Filed: 09/28/17 07:53> Dx/Plan (1) Influenza A (H1N1) Code(s): J10.1 - FLU DUE TO OTH IDENT INFLUENZA VIRUS W OTH RESP MANIFEST Status: Acute Plan: Improving but still requiring oxygen. discussed weaning oxygen today with nursing. (2) Physical deconditioning Code(s): R53.81 - OTHER MALAISE Status: Acute Plan: Case management states no funding available for inpatient or outpatient PT/OT. Would have to pay out of pocket. She will talk with patient to discuss outpatient therapy options. - continue PT/OT (3) Hypertension Code(s): I10 - ESSENTIAL (PRIMARY) HYPERTENSION Status: Chronic QualifierTitle: Hypertension type: essential hypertension Qualified Code( s): I10 - Essential (primary) hypertension Plan: stable. <Eyad Ocampo - Last Filed: 09/28/17 07:53> Attending Addendum - Attending Addendum I personally evaluated the patient and discussed the management with Dr. Ocampo I agree with the History, Examination, Assessment and Plan documented above with any addition or exceptions noted below. Patient is doing much better, but still requires oxygen and is weak. We are trying to arrange home oxygen and PT for him. He lives alone in [place]. For now, continue to wean oxygen and do PT in the room. <Nabil Mchugh - Last Filed: 09/28/17 11:12>
[2017-09-28] MEDS: Hydrochlorothiazide 25 MG TAB PO SCH (07:56)
[2017-09-28] MEDS: Enoxaparin Sodium 40 MG/0.4 ML SYRINGE SC SCH (07:57)
[2017-09-28] MEDS: Lisinopril 20 MG TAB PO SCH (20:42)
--- NOTE | 2017-09-28 22:51 | PRG ---
DATE OF SERVICE: 09/28/2017 SERVICE: Pulmonary Medicine. INTERVAL HISTORY: The patient is doing well from a cardiovascular and respiratory standpoint. He re benjy on a little bit of oxygen. He denies any current fevers, chills, nausea, vomiting. There were no overnight events. PHYSICAL EXAMINATION: VITAL SIGNS: Afebrile, pulse 97, blood pressure 133/92, respirations 20, saturation 93% on 2 liters nasal cannula. GENERAL: Patient is awake, alert, in no apparent distress. LUNGS: He has air entry. Right-sided crackles are present. He is lying on his right side at this t benson. I do not appreciate any left-sided crackles. HEART: Normal rate. Regular. ABDOMEN: Soft, nontender, nondistended. Bowel sounds positive. MUSCULOSKELETAL: No cyanosis or clubbing. There is no pitting in the bilateral lower extremities. NEUROLOGIC: Grossly nonfocal. LABORATORY DATA: WBC is down trending to 11.9, hemoglobin 14.2, platelets 301,000. Blood cultures x 4, respiratory virus panel, urine culture, and Influenza A and B are all unremarkable. The PCR was p ositive for influenza A and H1. ASSESSMENT: 1. Acute hypoxic respiratory failure. 2. Community acquired-pneumonia, secondary to influenza A. PLAN: We will continue supportive care and wean oxygen as tolerated. We will continue mobilizing th e patient as much as tolerated. He is working with physical therapy. We will try to get him into a chair 3 times daily.
--- NOTE | 2017-09-29 07:06 | PDOC.FM ---
- Subjective Subjective: CC: walking better HPI: States he has been able to walk hallways with assistance. feels like he is breathing better. - Objective Vital Signs & Weight: Vital Signs (12 hours) Temp Pulse Resp BP BP Pulse Ox 09/29/17 04:00 98.2 F 88 18 111/63 93 L 09/29/17 03:08 82 16 93 L 09/28/17 22:30 72 16 94 L 09/28/17 20:42 141/85 H 09/28/17 20:00 98.8 F 99 20 141/85 H 95 Weight Admit Weight 129.7 kg Weight 118.388 kg Most Recent Monitor Data Heart Rate from ECG 82 NIBP 133/79 NIBP BP-Mean 97 Respiration from ECG 22 SpO2 92 I&O: 09/28/17 09/29/17 09/30/17 06:59 06:59 06:59 Intake Total 600 Output Total 800 Balance -200 Result Diagrams: 09/26/17 05:37 09/26/17 05:37 <Eyad Ocampo W - Last Filed: 09/29/17 08:05> - Objective Vital Signs & Weight: Vital Signs (12 hours) Temp Pulse Resp BP Pulse Ox 09/29/17 08:00 98.9 F 84 20 118/71 91 L 09/29/17 07:28 81 16 89 L 09/29/17 04:00 98.2 F 88 18 111/63 93 L 09/29/17 03:08 82 16 93 L 09/28/17 22:30 72 16 94 L Weight Admit Weight 285 lb 15.033 oz Weight 261 lb Most Recent Monitor Data Heart Rate from ECG 82 NIBP 133/79 NIBP BP-Mean 97 Respiration from ECG 22 SpO2 92 I&O: 09/28/17 09/29/17 09/30/17 06:59 06:59 06:59 Intake Total 600 Output Total 800 Balance -200 Result Diagrams: 09/26/17 05:37 09/26/17 05:37 <Nabil Mchugh - Last Filed: 09/29/17 10:04> Phys Exam - Physical Examination Constitutional: NAD HEENT: moist MMs, sclera anicteric Respiratory: no wheezing, clear to auscultation bilateral Cardiovascular: RRR, no significant murmur Gastrointestinal: soft, positive bowel sounds Neurological: non-focal, moves all 4 limbs Psychiatric: normal affect, A&O x 3 <Eyad Ocampo W - Last Filed: 09/29/17 08:05> Dx/Plan (1) Influenza A (H1N1) Code(s): J10.1 - FLU DUE TO OTH IDENT INFLUENZA VIRUS W OTH RESP MANIFEST Status: Acute Plan: Improving but still requiring oxygen. discussed weaning oxygen today with nursing. (2) Physical deconditioning Code(s): R53.81 - OTHER MALAISE Status: Acute Plan: Case management states no funding available for inpatient or outpatient PT/OT. Would have to pay out of pocket. She will talk with patient to discuss outpatient therapy options. - continue PT/OT (3) Hypertension Code(s): I10 - ESSENTIAL (PRIMARY) HYPERTENSION Status: Chronic QualifierTitle: Hypertension type: essential hypertension Qualified Code( s): I10 - Essential (primary) hypertension Plan: increased HCTZ to 25 mg daily <Eyad Ocampo - Last Filed: 09/29/17 08:05> Attending Addendum - Attending Addendum I personally evaluated the patient and discussed the management with Dr. Ocampo I agree with the History, Examination, Assessment and Plan documented above with any addition or exceptions noted below. Patient is doing much better. He is up walking and O2 sats are now 93% at rest. We will do one more day of PT in hospital and watch sats. Home tomorrow. <Nabil Mchugh - Last Filed: 09/29/17 10:04>
[2017-09-29] MEDS: Hydrochlorothiazide 25 MG TAB PO SCH (07:52)
[2017-09-29] MEDS: Enoxaparin Sodium 40 MG/0.4 ML SYRINGE SC SCH (07:52)
[2017-09-29] MEDS: Lisinopril 20 MG TAB PO SCH (20:00)
--- NOTE | 2017-09-30 00:22 | PRG ---
DATE OF SERVICE: 09/29/2017 SERVICE: Pulmonary Medicine. INTERVAL HISTORY: Mr. Puente is being little cantankerous this evening. He really will not wake up fo r me. He is answering my questions appropriately, but he will not open his eyes or attend. He is tu cked up into a position. He does not have any shortness of breath or chest discomfort. He taylor s not look to be in any distress. PHYSICAL EXAMINATION: VITAL SIGNS: Afebrile, pulse 100, blood pressure 105/56, respirations 18, saturation 95% on room air . GENERAL: The patient is awake and alert, in no apparent distress. LUNGS: Decent air entry. Dependent crackles are present in the right lung, which is down. HEART: Normal rate, regular. ABDOMEN: Soft, nontender, nondistended. Bowel sounds positive. MUSCULOSKELETAL: No cyanosis or clubbing. There is trace pitting in the bilateral lower extremities . NEUROLOGIC: Grossly nonfocal. LABORATORY DATA: WBC 11.9, hemoglobin 14.2, platelets 301,000. Basic metabolic profile was essentia lly unremarkable except for a bicarbonate that is stable at 32. Liver function studies are unremarka ble. Blood sugars ranged from 113-109. All culture results were negative to date except for influen za A being positive on a PCR. ASSESSMENT: 1. Acute hypoxic respiratory failure. 2. Community-acquired pneumonia secondary to influenza A. PLAN: We will continue supportive care as tolerated. We will wean oxygen. From a purely medical s [place], the patient is stable for transition home provided that he has a strength to do so. We wi ll continue working on mobilizing him as much as tolerated. Dr. Currie will resume care in the [facility].
[2017-09-30 05:49] LABS: #Eosinphils 0.2 thou/uL (0.0-0.7); #Lymphocytes 1.2 thou/uL (1.20-3.40); #Monocytes 0.6 thou/uL (0.11-0.59); #Neutrophils 5.4 thou/uL (1.40-6.50); %Basophils 0.2 % (0.0-1.0); %Eosinophils 3.3 % (0.0-10.0); %Lymphocytes 16.3 % (21.0-51.0); %Monocytes 8.5 % (0.0-10.0); Hematocrit 41.1 % (42.0-52.0); Mean Platelet Volume 8.1 fL (7.4-10.4); Red Blood Cell (RBC) Count 4.67 mill/uL (4.70-6.10); White Blood Cell (WBC) Count 7.5 thou/uL (4.8-10.8)
[2017-09-30 06:28] LABS: Anion Gap 12 mmol/L (10-20); Carbon Dioxide 28 mmol/L (23-31); Chloride 101 mmol/L (98-107)
[2017-09-30 06:42] LABS: BUN (Urea Nitrogen) 29 mg/dL (8.4-25.7); Calc. Creatinine Clearance 147 mL/min (70-130); Estimated GFR-MDRD 90
[2017-09-30] MEDS: Enoxaparin Sodium 40 MG/0.4 ML SYRINGE SC SCH (08:42)
[2017-09-30] MEDS: Hydrochlorothiazide 25 MG TAB PO SCH (08:43)
--- NOTE | 2017-09-30 09:11 | PDOC.FM ---
- Subjective Subjective: CC: Ready to go home HPI: Patient states he has been walking in the room unassisted and does feel light headed when he is walking. No longer requiring O2. States he has friends that can take him home. - Objective MAR Reviewed: Yes Vital Signs & Weight: Vital Signs (12 hours) Temp Pulse Resp BP BP Pulse Ox 09/30/17 07:20 83 16 95 09/30/17 03:05 97.6 F 94 18 116/81 95 09/30/17 02:21 96 18 93 L 09/30/17 00:00 99.1 F 94 25 H 109/63 92 L 09/29/17 22:25 68 16 92 L Weight Admit Weight 129.7 kg Weight 116.573 kg Most Recent Monitor Data Heart Rate from ECG 82 NIBP 133/79 NIBP BP-Mean 97 Respiration from ECG 22 SpO2 92 I&O: 09/29/17 09/30/17 10/01/17 06:59 06:59 06:59 Intake Total 600 960 Output Total 800 1100 Balance -200 -140 Result Diagrams: 09/30/17 05:28 09/30/17 05:28 <Eyad Ocampo - Last Filed: 09/30/17 09:08> - Objective Vital Signs & Weight: Vital Signs (12 hours) Temp Pulse Resp BP Pulse Ox 09/30/17 12:13 98.1 F 102 H 18 166/81 H 94 L 09/30/17 10:30 64 16 95 09/30/17 10:25 60 16 95 09/30/17 09:28 98.0 F 98 16 121/64 93 L 09/30/17 08:40 98.0 F 98 16 93 L 09/30/17 07:20 83 16 95 Weight Admit Weight 129.7 kg Weight 116.573 kg Most Recent Monitor Data Heart Rate from ECG 82 NIBP 133/79 NIBP BP-Mean 97 Respiration from ECG 22 SpO2 92 I&O: 09/29/17 09/30/17 10/01/17 06:59 06:59 06:59 Intake Total 600 960 Output Total 800 1100 Balance -200 -140 Result Diagrams: 09/30/17 05:28 09/30/17 05:28 <Rachel Dias - Last Filed: 09/30/17 15:46> Phys Exam - Physical Examination Constitutional: NAD HEENT: moist MMs, sclera anicteric Neck: no nodes, no JVD Respiratory: no wheezing, no rales, clear to auscultation bilateral Cardiovascular: RRR, no significant murmur Gastrointestinal: soft, non-tender Neurological: non-focal, moves all 4 limbs Psychiatric: normal affect, A&O x 3 <Eyad Ocampo - Last Filed: 09/30/17 09:08> Dx/Plan (1) Influenza A (H1N1) Code(s): J10.1 - FLU DUE TO OTH IDENT INFLUENZA VIRUS W OTH RESP MANIFEST Status: Acute Plan: Off supplement oxygen for 24 hours. Maintaining saturations. - plan for d/c today. (2) Physical deconditioning Code(s): R53.81 - OTHER MALAISE Status: Acute Plan: Case management states no funding available for inpatient or outpatient PT/OT. Would have to pay out of pocket. Has improved over the weekend. - continue PT/OT (3) Hypertension Code(s): I10 - ESSENTIAL (PRIMARY) HYPERTENSION Status: Chronic QualifierTitle: Hypertension type: essential hypertension Qualified Code( s): I10 - Essential (primary) hypertension Plan: improved with increase in HCTZ. <Eyad Ocampo - Last Filed: 09/30/17 09:08> Attending Addendum - Attending Addendum I personally evaluated the patient and discussed the management with Dr. Ocampo I agree with the History, Examination, Assessment and Plan documented above with any addition or exceptions noted below- Patient without complaints. Wants to go home. Denies any SOB. Tolerating diet. Ambulating in room and in halls. Afebrile VSS A/P: 1) influenza A pneumonia- off O2 and back to baseline; plan to d/c home today, 2) HTN- stable; continue current meds. <Rachel Dias - Last Filed: 09/30/17 15:46>
[2017-09-30 12:14] VITALS: BP 166/81; TEMP 98.1
--- NOTE | 2017-09-30 12:20 | PRG ---
DATE OF SERVICE: 09/30/2017 SUBJECTIVE: Mr. Puente is feeling fine and wants to go home. OBJECTIVE: VITAL SIGNS: Temperature 97.6, pulse 94, respirations 16, O2 sat 95% on room air, blood pressure 116 /81. HEENT: Unremarkable. NECK: No JVD. CHEST: A few crackles in both bases. CARDIAC: S1 and S2 regular. ABDOMEN: Soft. EXTREMITIES: No edema. LABORATORY DATA: White blood cell count 7.5, hematocrit 41, platelet count 225. Sodium 136, potassi um 4.5, chloride 101, CO2 28, BUN 29, creatinine 0.8, glucose 116. ASSESSMENT: 1. Status post pneumonia. 2. Status post respiratory failure. RECOMMENDATIONS: I think he is stable for discharge. He will need to follow up with his primary car e provider in 2-3 weeks and have a chest x-ray repeated. No further recommendations from a pulmonary standpoint other than giving him his flu and pneumonia shot prior to discharge.
--- NOTE | 2017-09-30 15:21 | DIS-2 ---
DATE OF ADMISSION: 09/15/2017 DATE OF DISCHARGE: 09/30/2017 ADMITTING ATTENDING: Carrie Croft M.D. DISCHARGE ATTENDING: Rachel Dias M.D. RESIDENT: Eyad Ocampo M.D. CONSULTATIONS: Adelso Currie M.D., Pulmonology Critical Care. PROCEDURES: 1. Endotracheal intubation on 09/15/2017 with subsequent extubation on 2016. 2. Left femoral artery central line placement on 09/15/2017. PERTINENT IMAGIN. Chest x-ray 09/15/2017, tiny right pleural effusions. 2. CTA chest, no evidence of pulmonary embolism, bibasilar atelectasis, right greater than left. 3. Chest x-ray on 09/15/2017, endotracheal catheter and nasogastric tube are in good position, pulmonary vascular congestion, otherwise stable. 4. Chest x-ray 09/15/2017, tip of right subclavian venous catheter projecting over the right atrium. No evidence of pneumothorax. 5. Transthoracic echocardiogram, technically limited study, ejection fraction of 55%-60%, suggestive of flow reversal noted, suggestive of diastolic dysfunction, mild mitral regurgitation, mild tricuspid regurgitation, and mild pulmonic regurgitation. 6. Chest x-ray, 09/16/2017, bibasilar atelectasis or infiltrates, right greater than left. 7. Chest x-ray 09/25/2017, improving parenchymal changes probably related to resolving edema. 8. Abdominal ultrasound, unremarkable gallbladder ultrasound, negative Perez sign. PERTINENT LABORATORY FINDINGS: 1. White blood cell count at time of admission 13.6 and trended down to 7.5 the day of discharge. Bandemia on 09/18/2017 of 24 trended down to 2, neutrophilia of 87% at the time of admission and trended up to 91.8 and was at 71.7% at the time of discharge. BNP at time of admission 34.6. Troponin at time of admission 0.064, trended up to 0.100 and down to less than 0.010, likely due to demand ischemia. TSH 3.5261. Hemoglobin A1c 5.8%. Lactic acid 1.2. 2. Microbiology: Blood cultures on 09/15/2017 negative x2. Blood cultures on 09/16/2017 negative x2. Respiratory virus panel positive for influenza A and influenza H1. Urine culture negative. PRIMARY DIAGNOSES: 1. Septic shock secondary to H1 influenza and influenza A pneumonia. 2. Hypoxic hypercapnic respiratory failure secondary to H1 influenza and influenza A pneumonia. 3. Elevated troponins, resolved. SECONDARY DIAGNOSES: 1. Hypertension. 2. Presumed diastolic dysfunction. 3. Physical deconditioning. DISCHARGE MEDICATIONS: 1. Hydrochlorothiazide 25 mg daily. 2. Lisinopril 20 mg daily. DISCONTINUED MEDICATIONS: None. HISTORY OF PRESENT ILLNESS AND HOSPITAL COURSE: Mr. Puente is a pleasant 61-year- old male who presented on 09/15/2017 with shortness of breath, wheezing, and mild congestion for 1 week. Stated he had been cleaning the house that was in a disheveled state with multiple cats and cat feces on the scene. He was intubated while in the emergency room due to acute respiratory distress after failing a trial of BiPAP. He was found to be positive for influenza H1 and influenza A. He was started on vancomycin, Zosyn , and Levaquin. He remained on the ventilator until 09/24/2017. During this time, he was slowly weaned from the ventilator. Antibiotic coverage was deescalated to Levaquin. He completed a full course of Levaquin. After extubation, he was requiring 4 liters via nasal cannula. Case management was consulted for placement for physical therapy due to deconditioning from his hospital stay. However, given his funding status, this was not possible. Case management discussed outpatient physical therapy with the patient, but informed him that he would be required to pay from out of pocket. He remained in the hospital until he no longer required supplemental oxygen and was able to ambulate with the assistance of a walker. Case management was consulted on the day of discharge to arrange for a [place] walker. However, the patient was resistant to receiving a walker at home. Throughout his hospital stay, his blood pressure was found to be mildly elevated. He was started on lisinopril and hydrochlorothiazide. These medications were titrated until his blood pressure was in the appropriate range. He continued to work with PT and OT throughout his hospital stay and has regained a significant amount of his strength. On day of discharge, the patient was agreeable with the plan and was making arrangements for friends to come to drive him home. Vital signs at time of discharge were stable. DISPOSITION: Patient was discharged in stable condition. He will likely make a full recovery from this illness. DISCHARGE INSTRUCTIONS: 1. Location: Home. 2. Diet: Heart healthy. 3. Activity: As tolerated and instructed to use walker when ambulating until his strength fully returns. 4. Followup: The patient was to follow up with his primary care provider within 1 week of discharge for continued management of his blood pressure and for monitoring his physical deconditioning. Approximately 35 minutes were spent on this discharge including preparing discharge material, recording discharge planning and providing patient education. [place]
--- NOTE | 2017-10-22 13:38 | EKG ---
Test Reason : Blood Pressure : / mmHG Vent. Rate : 124 BPM Atrial Rate : 124 BPM P-R Int : 150 ms QRS Dur : 082 ms QT Int : 320 ms P-R-T Axes : 024 044 040 degrees QTc Int : 459 ms Sinus tachycardia with Premature supraventricular complexes Otherwise normal ECG Confirmed by YNUIER GARVIN ([id number]), editor farm journal REJI TREVINO ([id number]) on 10/22/2017 1:38:31 PM Referred By: Confirmed By:YUNIER GARVIN
== END 2017-09-30 13:46 | disposition home or self-care (01) | DRG 870 ==
LOC: ERS 14:32 → CCU 17:48 → ERS 20:16 → 2NO 09-25 15:07
PROVIDERS: ADMIT Student in an Organized Health Care Education/Training Program; ATTEND Student in an Organized Health Care Education/Training Program
PROC: 0BH17EZ Insertion of Endotracheal Airway into Trachea, Via Natural or Artificial Opening (ICD-10-PCS; principal; 2017-09-15)
PROC: 5A1955Z Respiratory Ventilation, Greater than 96 Consecutive Hours (ICD-10-PCS; 2017-09-15)
PROC: 02H633Z Insertion of Infusion Device into Right Atrium, Percutaneous Approach (ICD-10-PCS; 2017-09-15)
PROC: 03HY32Z Insertion of Monitoring Device into Upper Artery, Percutaneous Approach (ICD-10-PCS; 2017-09-15)
DX: A41.89 Other specified sepsis (principal); R65.21 Severe sepsis with septic shock; J18.9 Pneumonia, unspecified organism; J90 Pleural effusion, not elsewhere classified; N17.9 Acute kidney failure, unspecified; J96.01 Acute respiratory failure with hypoxia; J96.02 Acute respiratory failure with hypercapnia; I11.9 Hypertensive heart disease without heart failure; J10.01 Influenza due to other identified influenza virus with the same other identified influenza virus pneumonia; E87.1 Hypo-osmolality and hyponatremia; E66.9 Obesity, unspecified; R73.9 Hyperglycemia, unspecified; N28.9 Disorder of kidney and ureter, unspecified; Z87.891 Personal history of nicotine dependence; Z68.37 Body mass index [BMI] 37.0-37.9, adult
CPT/HCPCS: 31500; 36415; 36416; 36556; 51702; 70450; 71010; 71275; 76705; 80048; 80053; 80061; 80202; 81003; 81015; 82550; 82553; 82805; 83036; 83605; 83690; 83735; 83880; 84100; 84145; 84443; 84484; 85025; 86706; 86778; 86780; 86803; 87040; 87086; 87340; 87389; 87633; 87899; 90471; 90682; 93005; 93010; 93306; 94003; 94640; 94760; 96361; 96365; 96366; 96367; 96368; 96375; 99292; A4216; C1751; G0008; G8978-GP-CL; G8979-GP-CI; J0131; J0360; J1100; J1650; J1815; J1940; J1956; J2060; J2250; J2543; J2704; J2765; J2920; J2930; J3010; J3370; J3411; J7050; J7620; Q2036; S0028